=== PATIENT | female | born 1980 | race Caucasian/White ===

== ENCOUNTER → 2018-09-10 16:40 | Outpatient (CLI) | payer BC, SELFPAY ==
--- NOTE | 2018-09-10 16:43 | MM_ITS ---
MM Dig screening mamm BI w/CAD ORDERING PHYSICIAN : Huan August MD PATIENT AGE: 38 years GENDER: Female COMPARISON: January 2014, August 2017. INDICATION: ITS.REASON: screening no hormones no new complaints Family history. Mother with breast cancer in her 50s TECHNIQUE: Standard CC and MLO images were obtained. R2 CAD reviewed. Axillary cc view both breast, IMfview right and left breast. Also included FINDINGS: Stable Mild asymmetry. Mild/moderate density breast tissue upper-outer quadrant of both right and left breast. No new areas of concern. RIGHT BREAST:No significant new findings. LEFT BREAST:No significant change . mildly asymmetric area of at the deep upper outer quadrant left breast. Stable. IMPRESSION: Stable bilateral mammogram. No significant new areas of concern Bilateral one year follow-up BI-RADS Category: 2 Benign Finding(s) RECOMMENDED FOLLOW-UP: 1YR 1 YEAR FOLLOW-UP (A letter has been sent to the patient regarding results of the study.)
== END ==
PROVIDERS: PCP Internal Medicine Adolescent Medicine; Visit Provider Obstetrics & Gynecology
DX: Z80.3 Family history of malignant neoplasm of breast (principal); Z12.31 Encounter for screening mammogram for malignant neoplasm of breast
CPT/HCPCS: 77067

== ENCOUNTER → 2019-01-10 12:11 | Outpatient (CLI) | payer BC, SELFPAY ==
[2019-01-10 14:37] LABS: Alanine Aminotransferase 25 U/L (12-78); Albumin Level 3.5 gm/dL (3.4-5.0); Albumin/Globulin Ratio 0.9 (1.1-1.8); Alkaline Phosphatase 77 U/L (46-116); Anion Gap 14.7 mEq/L (5-15); Aspartate Amino Transferase 9 U/L (15-37); Bilirubin,Total 0.3 mg/dL (0.2-1.0); Blood Urea Nitrogen 9 mg/dL (7-18); Calcium 9.2 mg/dL (8.5-10.1); Carbon Dioxide 27 mmol/L (21.0-32.0); Chloride 103 mmol/L (98-107); Chol/HDL Ratio 4.5 (1-3.5); Cholesterol 187 mg/dL (140-200); Creatinine,Serum 0.79 mg/dL (0.55-1.02); Estimated Glomerular Filt Rate 82 ml/min (>60); GFR (African American) 100 ML/MIN (>60); Globulin 3.7 gm/dl (1.3-3.2); Glucose 93 mg/dL (74-106); HDL Cholesterol 42 mg/dL (29-89); LDL Cholesterol 118 mg/dL (0-130); Potassium 4.7 mmoL/L (3.5-5.1); Sodium 140 mmol/L (136-145); Total Protein,Serum 7.2 gm/dL (6.4-8.2); Triglycerides 136 mg/dL (30-200); VLDL Cholesterol 27 mg/dL (0-40)
== END ==
PROVIDERS: Visit Provider Internal Medicine Adolescent Medicine
DX: Z00.00 Encounter for general adult medical examination without abnormal findings (principal)
CPT/HCPCS: 36415; 80053; 80061

== ENCOUNTER → 2019-09-22 10:55 | Outpatient (CLI) | payer BC, SELFPAY ==
--- NOTE | 2019-09-22 11:10 | MM_ITS ---
PROCEDURE: MM DIG SCREENING MAMM BI W/CAD CLINICAL INDICATION: SCREENING There is a history of breast cancer in patient's mother diagnosed after menopause. COMPARISON: DMDB DIG MAMM-DX SELENE from 02/09/2014 DMSB DIG MAMM-SCREEN SELENE W/CAD from 08/31/2017 [facility] MM Dig screening mamm BI w/CAD from 09/10/2018 TECHNIQUE: Standard CC and MLO images were obtained. R2 CAD reviewed. FINDINGS: Scattered fibroglandular densities are seen in both breasts. There is stable slightly asymmetrical increased fibroglandular elements upper-outer quadrant right breast. There is no new or suspicious lesion in either breast and no suspicious microcalcifications. There are stable small nodes in both axilla. IMPRESSION: Stable exam with no suspicious lesions seen BI-RAD Category: 2 Benign Finding(s) FOLLOW-UP: 1YR 1 Year Follow-up (A letter has been sent to the patient regarding results of the study.) Dictated by: Dr. Don Alvarez MD 09/23/2019 12:[address] Don Alvarez MD in [place] 09/23/2019 12:46
== END ==
PROVIDERS: PCP Internal Medicine Adolescent Medicine; Visit Provider Obstetrics & Gynecology
DX: Z12.31 Encounter for screening mammogram for malignant neoplasm of breast (principal); Z80.3 Family history of malignant neoplasm of breast
CPT/HCPCS: 77067

== ENCOUNTER → 2020-09-23 16:44 | Outpatient (CLI) | payer BC, SELFPAY ==
--- NOTE | 2020-09-23 16:45 | MM_ITS ---
PROCEDURE: MM DIG SCREENING MAMM BI W/CAD Digital Breast Tomosynthesis Included CLINICAL INDICATION: screening xmg There is a history of breast cancer in the patient's mother diagnosed at age 50. The patient currently is on control pills. COMPARISON: MG DMSB DIG MAMM-SCREEN SELENE W/CAD from 08/31/2017 MG [facility] MM Dig screening mamm BI w/CAD from 09/10/2018 MG MM DIG SCREENING MAMM BI W/CAD from 09/22/2019 TECHNIQUE: Standard CC and MLO images and 3D Tomosynthesis was obtained. R2 CAD reviewed. FINDINGS: Mild scattered fibroglandular densities are seen in both breast on a background of primarily fatty breast parenchyma. Slightly asymmetric glandular elements are seen upper outer quadrant right breast which is highlighted by CAD. This has been seen previously but appears slightly more prominent on the current study. In view of the immediate family history of breast cancer recommend the patient return for spot compression views and ultrasound for additional evaluation. IMPRESSION: Fibrofatty parenchyma with possible subtle change in asymmetric glandular elements right breast BI-RAD Category: 0 Need Additional Imaging Evaluation FOLLOW-UP: IMM Immediate Follow-up Recommended (A letter has been sent to the patient regarding results of the study.) Dictated by: Dr. Don Alvarez MD 09/24/2020 12:31 Dr. Don Alvarez MD in [place] 09/24/2020 12:31
== END ==
PROVIDERS: PCP Internal Medicine Adolescent Medicine; Visit Provider Nurse Practitioner Obstetrics & Gynecology
DX: Z12.31 Encounter for screening mammogram for malignant neoplasm of breast (principal)
CPT/HCPCS: 77063; 77067

== ENCOUNTER → 2020-09-28 13:59 | Outpatient (CLI) | payer BC, SELFPAY ==
--- NOTE | 2020-09-28 13:59 | MM_ITS ---
PROCEDURE: MM DIG MAMM DX UNILAT RT CAD Digital Breast Tomosynthesis Included CLINICAL INDICATION: abnormal xmg COMPARISON: MG [facility] MM Dig screening mamm BI w/CAD from 09/10/2018 MG MM DIG SCREENING MAMM BI W/CAD from 09/22/2019 MG MM DIG SCREENING MAMM BI W/CAD from 09/23/2020 US US BREAST RT COMPLETE from 09/28/2020 TECHNIQUE: Standard CC and MLO images and 3D Tomosynthesis was obtained. R2 CAD reviewed. FINDINGS: Compression views somewhat lessen concern of the possible area of asymmetric glandular elements and or architectural distortion. Ultrasound performed same date showed a small somewhat complex cystic structure at this location. However in view of the asymmetry being highlighted by CAD and the patient's strong family history I believe biopsy should be considered. IMPRESSION: Possible change in asymmetric glandular elements right breast in patient with strong family history of breast cancer BI-RAD Category: 4 Suspicious Abnormality - Biopsy Considered FOLLOW-UP: BIO Biopsy Recommended (A letter has been sent to the patient regarding results of the study.) Dictated by: Dr. Don Alvarez MD 09/28/2020 14:49 Dr. Don Alvarez MD in [place] 09/28/2020 14:49
--- NOTE | 2020-09-28 13:59 | US_ITS ---
PROCEDURE: US BREAST RT COMPLETE CLINICAL INDICATION: abnormal xmg COMPARISON: US BB US BREAST-SELENE from 02/09/2014 MG MM DIG MAMM DX UNILAT RT CAD from 09/28/2020 FINDINGS: Shows a hypoechoic cystic lesion 10 o'clock position outer breast corresponding in size and location to the area highlighted by CAD on the mammogram performed the same date. There are internal echoes and there is mild irregularity of the border and increased echogenicity surrounding this cystic lesion. IMPRESSION: Complex cystic lesion with irregular borders surrounded by and area of increased echogenicity corresponding in location to the density highlighted by CAD, and in view of the strong family history I recommend patient have a biopsy likely ultrasound-guided for tissue diagnosis. Dictated by: Dr. Don Alvarez MD 10/05/2020 08:57 Dr. Don Alvarez MD in [place] 10/05/2020 08:57
== END ==
PROVIDERS: PCP Internal Medicine Adolescent Medicine; Visit Provider Nurse Practitioner Obstetrics & Gynecology
DX: R92.8 Other abnormal and inconclusive findings on diagnostic imaging of breast (principal)
CPT/HCPCS: 76641; 77061; 77065; G0279

== ENCOUNTER → 2020-10-14 09:35 | Outpatient (CLI) | payer BC, SELFPAY | PROVIDERS: PCP Internal Medicine Adolescent Medicine; Visit Provider Nurse Practitioner Obstetrics & Gynecology | DX: R92.8 Other abnormal and inconclusive findings on diagnostic imaging of breast (principal); N63.11 Unspecified lump in the right breast, upper outer quadrant | CPT/HCPCS: 19083 ==

== ENCOUNTER → 2021-05-09 13:29 | Outpatient (CLI) | payer BC, SELFPAY ==
--- NOTE | 2021-05-09 13:30 | MM_ITS ---
PROCEDURE: MM DIG MAMM DX UNILAT RT CAD Digital Breast Tomosynthesis Included CLINICAL INDICATION: Dx RT Mamm-6 month f/u COMPARISON: MG DMSB DIG MAMM-SCREEN SELENE W/CAD from 08/31/2017 MG [facility] MM Dig screening mamm BI w/CAD from 09/10/2018 MG MM DIG SCREENING MAMM BI W/CAD from 09/22/2019 MG MM DIG SCREENING MAMM BI W/CAD from 09/23/2020 US US BREAST RT COMPLETE from 09/28/2020 MG MM DIG MAMM DX UNILAT RT CAD from 09/28/2020 US US BREAST RT COMPLETE from 05/09/2021 TECHNIQUE: Standard CC and MLO images and 3D Tomosynthesis was obtained. R2 CAD reviewed. FINDINGS: There are scattered fibroglandular elements which may obscure a lesion on mammography. Previously noted subtle area of architectural distortion upper outer right breast is slightly less conspicuous. No new dominant mass. No suspicious type microcalcifications. Limited right breast ultrasound concentrating on the site of prior biopsy at 10 o'clock shows a minimal residual cystic structure measuring about 4 millimeters. This was previously biopsy-proven to represent a cyst. No other abnormality noted. A few benign-appearing lymph nodes in the right axilla with normal morphology. IMPRESSION: Slight decrease in conspicuity of the area of minimal architectural distortion upper-outer quadrant right breast with minimal residual cystic structure at site of prior biopsy in the right breast at 10 o'clock now measuring about 4 millimeters. These findings are considered probably benign and repeat bilateral digital diagnostic mammograms and limited right breast ultrasound in 6 months are recommended. BI-RAD Category: 3 Probably Benign Finding Short Term Follow-Up FOLLOW-UP: Repeat bilateral digital diagnostic mammograms and limited right breast ultrasound in 6 months. (A letter has been sent to the patient regarding results of the study.) Dictated by: Tavo Jackson 05/09/2021 16:42 Tavo Jackson in [place] 05/09/2021 16:42
== END ==
PROVIDERS: PCP Internal Medicine Adolescent Medicine; Visit Provider Nurse Practitioner Obstetrics & Gynecology
DX: R92.8 Other abnormal and inconclusive findings on diagnostic imaging of breast (principal)
CPT/HCPCS: 76641; 77061; 77065; G0279

== ENCOUNTER → 2021-11-16 11:25 | Outpatient (CLI) | payer BC, SELFPAY ==
[2021-11-16 11:39] LABS: Basophils % 0.5 % (0.1-2.0); Eosinophils # 0.1 K/mm3 (0.0-0.4); Eosinophils % 1.6 % (0.1-12.0); Hematocrit 45.2 % (37.0-47.0); Hemoglobin 15.4 g/dL (12.2-16.2); Lymphocytes # 2.9 K/mm3 (0.7-4.5); Lymphocytes % 44.4 % (10-50); Mean Corpuscular HGB Conc 34.1 g/dL (31.8-35.4); Mean Corpuscular Hemoglobin 31.2 pg (27.0-31.2); Mean Corpuscular Volume 91.5 fl (81-99); Mean Platelet Volume 9.1 fl (7.4-10.4); Monocytes # 0.4 K/mm3 (0.1-1.0); Monocytes % 5.7 % (1.7-9.3); Neutrophils # 3.1 K/mm3 (1.8-7.8); Neutrophils % 47.7 % (37.0-80.0); Platelet Count 324 K/mm3 (142-424); Red Blood Count 4.95 M/mm3 (4.20-5.40); Red Cell Distribution Width 12.9 % (11.5-17.5); White Blood Count 6.6 K/mm3 (4.8-10.8)
--- NOTE | 2021-11-16 13:16 | US_ITS ---
PROCEDURE INFORMATION: Exam: US Right Breast, Complete MG Bilateral Diagnostic Breast Tomosynthesis Exam date and time: 11/16/2021 1:16 PM Age: 41 years old Clinical indication: Short-term radiographic follow-up for questionable distortion in the right lateral breast TECHNIQUE: Imaging protocol: Complete ultrasound of all four quadrants of the Right breast and the retroareolar regions, including ultrasound of the axilla when performed. Bilateral Diagnostic tomosynthesis and 2D mammography including computer-aided detection (CAD) when performed. Unilateral or bilateral exam. COMPARISON: 1. MG MM DIG MAMM DX UNILAT RT CAD 05/09/2021 1:54 PM 2. MG MM DIG MAMM DX UNILAT RT CAD 09/28/2020 2:03 PM FINDINGS: MAMMOGRAPHY: The breast tissue is composed of scattered areas of fibroglandular density. There is no stellate mass, architectural distortion or suspicious microcalcifications in either breast to suggest malignancy. Previously noted area of subtle architectural distortion in the middle third of the right lateral breast is not seen on current examination . No skin thickening or axillary adenopathy. ULTRASOUND: Sonographic images of the right breast including the retroareolar region, all 4 quadrants and the axilla do not demonstrate any solid masses. 0.5 cm cyst in the 10 o'clock axis. No architectural distortion or acoustical shadowing. No skin thickening or axillary adenopathy. IMPRESSION: No mammographic or sonographic evidence of malignancy. Annual bilateral mammographic screening is recommended unless otherwise clinically indicated. ASSESSMENT: BI-RADS Category 2: Benign
[2021-11-16 13:23] LABS: Alanine Aminotransferase 17 U/L (12-78); Albumin Level 4.3 g/dl (3.5-5.0); Albumin/Globulin Ratio 1.3 (1.1-1.8); Alkaline Phosphatase 75 U/L (38-126); Anion Gap 12.3 mEq/L (5-15); Aspartate Amino Transferase 22 U/L (14-36); Bilirubin,Total 0.5 mg/dl (0.2-1.3); Blood Urea Nitrogen 11 mg/dl (7-17); Calcium 10.1 mg/dl (8.4-10.2); Carbon Dioxide 28 mmol/L (22.0-30.0); Chloride 100 mmol/L (98-107); Estimated Glomerular Filt Rate 93 ml/min (>60); GFR (African American) 113 ML/MIN (>60); Globulin 3.2 g/dL (1.3-3.2); Glucose 85 mg/dl (74-100); Magnesium 1.7 mg/dl (1.6-2.3); Potassium 4.3 mmoL/L (3.5-5.1); Sodium 136 mmol/L (136-145); Total Protein,Serum 7.5 g/dl (6.3-8.2)
[2021-11-16 13:57] LABS: Free T4 (Free Thyroxine) 0.81 ng/dl (0.78-2.19)
[2021-11-16 14:11] LABS: Thyroid Stimulating Hormone 3.54 uIU/mL (0.465-4.68)
[2021-11-16 14:30] LABS: Vitamin B12 238 pg/mL (239-931)
== END ==
LOC: RAD 11:26
PROVIDERS: Nurse Practitioner Family; PCP Internal Medicine Adolescent Medicine; Visit Provider Nurse Practitioner Obstetrics & Gynecology
DX: R92.8 Other abnormal and inconclusive findings on diagnostic imaging of breast (principal); R00.2 Palpitations; R53.81 Other malaise
CPT/HCPCS: 36415; 76641; 77062; 77066; 80053; 82607; 83735; 84439; 84443; 85025; 93225; 93226; G0279

== ENCOUNTER → 2021-11-24 15:40 | Outpatient (CLI) | payer BC, SELFPAY | PROVIDERS: PCP Internal Medicine Adolescent Medicine; Visit Provider Nurse Practitioner Family | DX: Z20.822 Contact with and (suspected) exposure to COVID-19 (principal); R05.9 Cough, unspecified | CPT/HCPCS: 87275; 87276; C9803; U0003; U0005 ==

== ENCOUNTER 2022-11-03 06:52 | Emergency (ER) | payer BC, SELFPAY ==
[2022-11-03] VITALS (9 sets, daily range): BP systolic 125–170; BP diastolic 73–104; PULSE 68–87; RESP 17–18; TEMP 36.6–36.7; O2SAT 98–100; BMI 31.8
--- NOTE | 2022-11-03 07:01 | CT_ITS ---
PROCEDURE INFORMATION: Exam: CTA Neck With Contrast Exam date and time: 11/03/2022 7:22 AM Age: 42 years old Clinical indication: Stroke-like symptoms; Left upper extremity numbness/paresthesia; Additional info: CVA rule out. Lue weakness and facial numbness TECHNIQUE: Imaging protocol: Computed tomographic angiography of the neck with contrast. 3D rendering (Not supervised by radiologist): MIP and/or 3D reconstructed images were created by the technologist. Radiation optimization: All CT scans at this facility use at least one of these dose optimization techniques: automated exposure control; mA and/or kV adjustment per patient size (includes targeted exams where dose is matched to clinical indication); or iterative reconstruction. Contrast material: ISOVUE; Contrast volume: 100 ml; Contrast route: INTRAVENOUS (IV); COMPARISON: CT HEAD/BRAIN WO CON 11/03/2022 7:13 AM FINDINGS: Right common carotid artery: No stenosis. No dissection or occlusion. Right internal carotid artery: No stenosis of the extracranial segment. No dissection or occlusion. Right external carotid artery: No occlusion or stenosis of the origin. Left common carotid artery: No stenosis. No dissection or occlusion. Left internal carotid artery: No stenosis of the extracranial segment. No dissection or occlusion. Left external carotid artery: No occlusion or stenosis of the origin. Right vertebral artery: No stenosis. No dissection or occlusion. Left vertebral artery: No stenosis. No dissection or occlusion. 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 Soft tissues: Normal. No significant soft tissue swelling. Bones/joints: No acute fracture. IMPRESSION: No significant cervical arterial stenosis. REFERENCES: NASCET CRITERIA. The degree of stenosis in the cervical segment of the internal carotid artery is based on NASCET criteria. Normal is no stenosis. Mild is less than 50% stenosis. Moderate is 50-69% stenosis. Severe is 70% to 99% stenosis. Total occlusion is no detectable patent lumen.
--- NOTE | 2022-11-03 07:01 | CT_ITS ---
PROCEDURE INFORMATION: Exam: CTA Head With Contrast, Arteriography Exam date and time: 11/03/2022 7:22 AM Age: 42 years old Clinical indication: Stroke-like symptoms; Left upper extremity numbness/paresthesia; Additional info: CVA rule out. Lue weakness and facial numbness TECHNIQUE: Imaging protocol: Computed tomographic angiography of the head with contrast. Exam focused on the arteries. 3D rendering (Not supervised by radiologist): MIP and/or 3D reconstructed images were created by the technologist. Radiation optimization: All CT scans at this facility use at least one of these dose optimization techniques: automated exposure control; mA and/or kV adjustment per patient size (includes targeted exams where dose is matched to clinical indication); or iterative reconstruction. Contrast material: ISOVUE; Contrast volume: 100 ml; Contrast route: INTRAVENOUS (IV); COMPARISON: CT HEAD/BRAIN WO CON 11/03/2022 7:13 AM FINDINGS: ANTERIOR CIRCULATION: Right internal carotid artery: Intracranial segment is patent with no significant stenosis. No aneurysm. Right middle cerebral artery: No occlusion or significant stenosis. No aneurysm. Right anterior cerebral artery: No occlusion or significant stenosis. No aneurysm. Left internal carotid artery: Intracranial segment is patent with no significant stenosis. No aneurysm. Left middle cerebral artery: No occlusion or significant stenosis. No aneurysm. Left anterior cerebral artery: No occlusion or significant stenosis. No aneurysm. POSTERIOR CIRCULATION: Right vertebral artery: No occlusion or significant stenosis. No aneurysm. Left vertebral artery: No occlusion or significant stenosis. No aneurysm. Basilar artery: No occlusion or significant stenosis. No aneurysm. Right posterior cerebral artery: No occlusion or significant stenosis. No aneurysm. Left posterior cerebral artery: No occlusion or significant stenosis. No aneurysm. 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 Brain: No definite mass, mass effect, or midline shift. There is a tiny lipoma of the quadrigeminal plate cistern. Cerebral ventricles: No ventriculomegaly. Bones/joints: Unremarkable. No acute fracture. Soft tissues: Unremarkable. IMPRESSION: No large vessel stenosis or occlusion.
--- NOTE | 2022-11-03 07:02 | PC.NURSE ---
radiology notified of stroke alert
--- NOTE | 2022-11-03 07:02 | CT_ITS ---
PROCEDURE INFORMATION: Exam: CT Head Without Contrast Exam date and time: 11/03/2022 7:13 AM Age: 42 years old Clinical indication: Stroke-like symptoms; Left upper extremity numbness/paresthesia; Additional info: Lue numbness and facial numbness TECHNIQUE: Imaging protocol: Computed tomography of the head without contrast. Radiation optimization: All CT scans at this facility use at least one of these dose optimization techniques: automated exposure control; mA and/or kV adjustment per patient size (includes targeted exams where dose is matched to clinical indication); or iterative reconstruction. Other technique: STROKE PROTOCOL was implemented. COMPARISON: No relevant prior studies available. FINDINGS: Brain: Normal. No hemorrhage. Unremarkable white matter. No mass effect. Cerebral ventricles: No ventriculomegaly. Paranasal sinuses: Visualized sinuses are unremarkable. No fluid levels. Mastoid air cells: Visualized mastoid air cells are well aerated. Bones/joints: Unremarkable. No acute fracture. Soft tissues: Unremarkable. IMPRESSION: No acute intracranial abnormality. ASSESSMENT: ASPECTS ([place] Stroke Program Early CT Score) is 10.
--- NOTE | 2022-11-03 07:03 | PC.NURSE ---
dr. lu at bedside for evaluation
[2022-11-03 07:04] LABS: Microscopic, Urine URINE MICROSCOPIC (MICROSCOPIC)
[2022-11-03 07:05] LABS: Appearance,Urine CLEAR (Clear); Bilirubin,Urine Negative (Negative); Blood, Urine 1+ (Negative); Color,Urine YELLOW (Yellow); Glucose,Urine (UA) Negative (Negative); Ketones,Urine Negative (Negative); Leukocyte Esterase,Urine Negative (Negative); Nitrate,Urine Negative (Negative); Protein,Urine Negative (Negative); Urobilinogen,Urine 0.2 EU/dl (0.2)
--- NOTE | 2022-11-03 07:05 | PC.NURSE ---
[facility]
[2022-11-03 07:06] LABS: Urine Pregnancy, HCG Qual. Negative (Negative)
--- NOTE | 2022-11-03 07:09 | PC.NURSE ---
PT TO CT
[2022-11-03 07:19] LABS: Bacteria,Urine Trace /lpf; RBC,Urine Occasional #/hpf (0-3); Squamous Epithelial Cell,Urine Occasional #/hpf (0-5)
--- NOTE | 2022-11-03 07:32 | PC.NURSE ---
[id number]
--- NOTE | 2022-11-03 07:32 | HMH.EDGENADL ---
Discharge Plan Disposition Patient Disposition: Home, Self-Care Condition: Good Chief Complaint: Neuro Symptoms/Deficit Prescriptions Prescriptions: No Action aspirin 81 mg tablet,delayed release (DR/EC) 81 mg PO DAILY propranolol 20 mg tablet 20 mg PO BID cetirizine 10 mg tablet 10 mg PO Label Comments: TAKE ONE TABLET BY MOUTH ONCE DAILY NEEDED Probiotic 3 billion cell capsule 3,000 mmu cells PO DAILY Rx Instructions: administer with a meal sertraline 25 mg tablet 25 mg PO DAILY Ajovy Autoinjector 225 mg/1.5 mL auto-injector 225 mg SQ norgestimate-ethinyl estradiol [Ortho Tri-Cyclen (28)] 0.18/0.215/0.25 mg-35 mcg (28) tablet 1 tab PO DAILY Qty: 84 4RF methylprednisolone [Medrol (Minh)] 4 mg tablets,dose pack 4 mg PO .COMPLEX Qty: 21 0RF Rx Instructions: 4 mg orally; take according to package directions for dose pack. Referrals Follow up/Referrals: Roberto Reynaga MD [Primary Care Provider] - See instructions Activity Restrictions/Add. Instructions Additional Instructions/Restrictions: At this time was felt you are safe to be discharged from the emergency department. If new or worsening symptoms please do not hesitate to return for continued evaluation. Please follow-up with your family doctor for continued management. Clinical Impressions Clinical Impression: Migraine Discharge ED Provider: Harish Hickey General Adult HPI <Arsalan Munguia MD - Last Filed: 11/03/22 08:32> General Chief complaint: Neuro Symptoms/Deficit Stated complaint: Left arm and face numbness Time Seen by Provider: 11/03/22 07:00 Mode of Arrival: Ambulatory Limitations: No Limitations Description of Symptoms (Recalled from ER Triage Doc. by RN): PT REPORTS THIS AM WHILE WASHING HER HAIR HER LEFT ARM WENT LIMP AND THE LEFT SIDE OF HER FACE WAS NUMB FOR ABOUT 5-10 SECONDS, RESOLVED AT PRESENT. CAN USE LEFT ARM/HAND BUT REPORTS DECREASED SENSATION. NO OTHER DEFICITS. REPORTS DIZZINESS 2 DAYS AGO. History of Present Illness HPI narrative: This is a 42-year-old female with history of hemiplegic migraines, left-sided ulnar nerve surgery presenting with left upper extremity weakness, numbness, left facial numbness. Patient states that approximately 90 minutes prior to arrival she was in the shower when she had left facial numbness, left upper extremity numbness and weakness. She came to the ED for further evaluation. Patient denies headache, migraine, vision changes, facial pain, facial swelling, left lower extremity deficits, dizziness, lightheadedness, chest pain, shortness of breath, nausea, vomiting, diaphoresis. She states that she has had hemiplegia from migraine-like symptoms in the past in the absence of migraine and aura, however this is very uncommon. No head trauma, or any other concerning history. Patient is on oral contraceptive Related Data Home Medications Medication Instructions Recorded Confirmed propranolol 20 mg tablet 20 mg PO BID 08/06/18 10/25/22 aspirin 81 mg tablet,delayed 81 mg PO DAILY 08/07/19 10/25/22 release cetirizine 10 mg tablet 10 mg PO 08/17/21 10/25/22 lactobacillus combination no.4 3 3,000 mmu cells PO DAILY 08/17/21 10/25/22 billion cell capsule (Probiotic) fremanezumab-vfrm 225 mg/1.5 mL 225 mg SQ 09/04/22 10/25/22 subcutaneous auto-injector (Ajovy) sertraline 25 mg tablet 25 mg PO DAILY 09/04/22 10/25/22 Previous Rx's Medication Instructions Recorded norgestimate-ethinyl estradiol 1 tab PO DAILY #84 tabs 09/04/22 0.18 mg/0.215mg/0.25mg-35 mcg(28)tablet (Ortho Tri-Cyclen (28)) methylprednisolone 4 mg tablets in 4 mg PO .COMPLEX pain and 10/04/22 a dose pack (Medrol (Minh)) inflammation #21 tabs Allergies Allergy/AdvReac Type Severity Reaction Status Date / Time Sulfa (Sulfonamide Allergy Mild Rash Verified 10/25/22 13:54 Antibiotics) topiramate [From Topamax] Allergy Mild Verified 10/25/22 13:5
[2022-11-03 07:34] LABS: POC Glucose,Bedside 109 (70-110)
--- NOTE | 2022-11-03 07:38 | ECG_ITS ---
APPROVED REPORT Exam: Resting ECG HR:76 bpm ECG Measurements Heart Rate 76 AXES MO 153 P 11 QRSd 89 QRS -13 QT 384 T 31 QTc 414 Conclusion SINUS RHYTHM NORMAL ECG UNCONFIRMED REPORT Electronically signed by : Roberto Reynaga MD 11/03/2022 09:22:51
--- NOTE | 2022-11-03 07:38 | PC.NURSE ---
0703 [facility] SCORE PER DR. SAEED
--- NOTE | 2022-11-03 07:55 | PC.NURSE ---
Dr. Munguia speaking with CHRISTINE at this time
--- NOTE | 2022-11-03 08:10 | PC.NURSE ---
Contacting [facility] for consult
--- NOTE | 2022-11-03 08:15 | PC.NURSE ---
Dr. Munguia speaking with [facility] team at this time
[2022-11-03 08:18] LABS: Basophils # 0.1 K/mm3 (0-0.2); Basophils % 0.8 % (0.1-2.0); Eosinophils # 0.2 K/mm3 (0.0-0.4); Eosinophils % 2.4 % (0.1-12.0); Hematocrit 47.8 % (37.0-47.0); Hemoglobin 15.6 g/dL (12.2-16.2); Lymphocytes # 3.2 K/mm3 (0.7-4.5); Lymphocytes % 48.1 % (10-50); Mean Corpuscular HGB Conc 32.7 g/dL (31.8-35.4); Mean Corpuscular Hemoglobin 30.7 pg (27.0-31.2); Mean Corpuscular Volume 93.8 fl (81-99); Mean Platelet Volume 9.7 fl (7.4-10.4); Monocytes # 0.5 K/mm3 (0.1-1.0); Neutrophils # 2.8 K/mm3 (1.8-7.8); Neutrophils % 41.7 % (37.0-80.0); Platelet Count 442 K/mm3 (142-424); Red Blood Count 5.09 M/mm3 (4.20-5.40); Red Cell Distribution Width 13.8 % (11.5-17.5); White Blood Count 6.6 K/mm3 (4.8-10.8)
[2022-11-03 08:23] LABS: Chloride 104 mmol/L (98-107); Sodium 139 mmol/L (136-145)
[2022-11-03 08:24] LABS: Potassium 3.9 mmoL/L (3.5-5.1)
[2022-11-03 08:26] LABS: Blood Urea Nitrogen 12 mg/dl (7-17); Creatinine Clearance Estimated 138 mL/min (50-200); Estimated Glomerular Filt Rate 93 ml/min (>60); GFR (African American) 112 ML/MIN (>60)
--- NOTE | 2022-11-03 08:26 | PC.NURSE ---
DR. SAEED AT BEDSIDE TO DISCUSS POC WITH PT
[2022-11-03 08:27] LABS: Anion Gap 12.9 mEq/L (5-15); Calcium 9.5 mg/dl (8.4-10.2); Carbon Dioxide 26 mmol/L (22.0-30.0); Glucose 83 mg/dl (74-100)
--- NOTE | 2022-11-03 08:30 | PC.NURSE ---
pt ambulatory to restroom without complications
[2022-11-03 08:42] LABS: Troponin I < 0.01 ng/ml (0.00-0.034)
--- NOTE | 2022-11-03 09:30 | PC.NURSE ---
ER at for update on POC with patient
--- NOTE | 2022-11-03 09:31 | PC.NURSE ---
DR. BRYANT AT BEDSIDE TO REEVALUATE PT AND DISCUSS POC
== END 2022-11-03 10:00 | disposition home or self-care (01) ==
PROVIDERS: Emergency Medicine; Emergency Provider Emergency Medicine; PCP Internal Medicine Adolescent Medicine
DX: G43.909 Migraine, unspecified, not intractable, without status migrainosus (principal); R29.818 Other symptoms and signs involving the nervous system; Z79.82 Long term (current) use of aspirin; Z79.899 Other long term (current) drug therapy; Z88.2 Allergy status to sulfonamides; Z88.8 Allergy status to other drugs, medicaments and biological substances
CPT/HCPCS: 70450; 70496; 70498; 80048; 81001; 81025; 82962; 84484; 85025; 93005; 96365; 96375; 99285; Q9967

== ENCOUNTER → 2022-12-04 16:29 | Outpatient (CLI) | payer BC, SELFPAY ==
--- NOTE | 2022-12-04 16:34 | MM_ITS ---
PROCEDURE INFORMATION: Exam: MG Bilateral Screening 3D Mammography Exam date and time: 12/04/2022 4:46 PM Age: 42 years old Clinical indication: Screening examination TECHNIQUE: Imaging protocol: Bilateral Screening tomosynthesis and 2D mammography including computer-aided detection (CAD) when performed. COMPARISON: 1. MG MM DIG MAMM BI DX W/CAD 11/16/2021 1:27 PM 2. MG MM DIG MAMM DX UNILAT RT CAD 05/09/2021 1:54 PM FINDINGS: MAMMOGRAPHY: Breast composition: There are scattered areas of fibroglandular density. Mass: None. Architectural distortion: None. Calcifications: No suspicious calcifications. Asymmetric density: None. Skin thickening: None. Axillary adenopathy: None. IMPRESSION: No mammographic evidence of malignancy. Annual screening is recommended unless otherwise clinically indicated. ASSESSMENT: BI-RADS Category 1: Negative
[2022-12-04 19:04] LABS: Folate 8.23 ng/mL; Vitamin B12 336 pg/mL (239-931)
[2022-12-06 23:51] LABS: Antinuclear Antibodies (ANA) NEGATIVE
== END ==
PROVIDERS: PCP Nurse Practitioner Family; Visit Provider Nurse Practitioner Family
DX: Z12.31 Encounter for screening mammogram for malignant neoplasm of breast (principal); E53.8 Deficiency of other specified B group vitamins; G89.29 Other chronic pain; R51.9 Headache, unspecified
CPT/HCPCS: 36415; 77063; 77067; 82607; 82746; 84443; 86038

== ENCOUNTER → 2022-12-11 13:35 | Outpatient (CLI) | payer BC, SELFPAY ==
--- NOTE | 2022-12-11 13:53 | MR_ITS ---
FINAL REPORT TECHNIQUE: Multiplanar and multisequence imaging of the brain was obtained without contrast. CLINICAL HISTORY: Daily headaches despite of medication, CVA-like. complex migraines for years. dizziness and blurred vision. FINDINGS: The gyri and sulci are within normal limits for age. There is no mass effect or midline shift. The ventricles are symmetric in size and configuration without hydrocephalus. The cerebellum and brainstem have a normal appearance. There is a focus of restricted diffusion in the left posterior temporal lobe with decreased signal intensity on ADC map imaging concerning for small focus of acute ischemia. Signal intensity in the proximal cord is normal. Soft tissues are without acute abnormality. IMPRESSION: Single focus of restricted diffusion in the posterior left temporal lobe concerning for small, acute infarct. Reviewed, Interpreted and Dictated by Ines Nevarez MD Transcribed by Thais Rivera Authenticated and [facility]
[2022-12-13 14:17] LABS: Antiparietal Cell Antibody 1.5 Units (0.0-20.0)
[2022-12-14 17:05] LABS: Intrinsic Factor Abs, Serum 0.9 AU/mL (0.0-1.1)
[2022-12-15 02:37] LABS: Methylmalonic Acid 150 nmol/L (0-378)
== END ==
PROVIDERS: PCP Nurse Practitioner Family; Visit Provider Nurse Practitioner Family
DX: R51.9 Headache, unspecified (principal); R29.90 Unspecified symptoms and signs involving the nervous system; E53.8 Deficiency of other specified B group vitamins
CPT/HCPCS: 36415; 70551; 82131; 83090; 83516; 86340

== ENCOUNTER → 2022-12-13 09:31 | Outpatient (CLI) | payer BC, SELFPAY ==
--- NOTE | 2022-12-13 09:48 | ECG_ITS ---
APPROVED REPORT Exam: Resting ECG HR:81 bpm ECG Measurements Heart Rate 81 AXES MA 134 P -8 QRSd 88 QRS 16 QT 367 T 30 QTc 405 Conclusion SINUS RHYTHM NORMAL ECG UNCONFIRMED REPORT Electronically signed by : Roberto Reynaga MD 12/14/2022 19:15:01
[2022-12-13 10:46] LABS: Cholesterol 218 mg/dl (140-200); Triglycerides 331 mg/dl (30-150); VLDL Cholesterol 66 mg/dL (0-40)
[2022-12-13 10:47] LABS: Chol/HDL Ratio 5.9 (1-3.5); HDL Cholesterol 37 mg/dl (40-60)
[2022-12-13 10:57] LABS: Direct LDL Cholesterol 123.21 mg/dL (100-129)
== END ==
LOC: LAB 09:32 → RT 09:36
PROVIDERS: PCP Nurse Practitioner Family; Visit Provider Nurse Practitioner Family
DX: R90.89 Other abnormal findings on diagnostic imaging of central nervous system (principal); R29.90 Unspecified symptoms and signs involving the nervous system; I63.9 Cerebral infarction, unspecified; G43.409 Hemiplegic migraine, not intractable, without status migrainosus; G47.9 Sleep disorder, unspecified
CPT/HCPCS: 36415; 80061; 93005; 93270

== ENCOUNTER → 2022-12-21 14:17 | Outpatient (CLI) | payer BC, SELFPAY ==
--- NOTE | 2022-12-21 14:20 | CA_ITS ---
APPROVED REPORT EXAM: Comprehensive 2D, Doppler, and color-flow Echocardiogram Medical Case Manager: Ramandeep Grant CRT Ht: 5 ft 4 in Wt: 185lbs BSA: 1.89 BP: 130/70 mmHg Indications: CVA/TIA, Migraines Echo Enhancing Agent Indication: Rule out Shunt Agent(s) / Amount(s) Used: Agitated Saline 5 cc Comments: B/S appears positive 2D Dimensions Aortic Root 1.96 cm LA Volume 26.30 mL LA Volume Index 13.90 mL/m2 (M/F) 16-34 M-Mode Dimensions RVDd 2.10 cm (0.9-2.6) LA Diam 3.18 cm (1.9-4.0) LVDd 4.66 cm (3.5-5.7) Ao Diam 3.42 cm (2.0-3.7) LVDs 3.08 cm (3.5-5.7) IVSd 1.25 cm (0.6-1.1) PWd 0.61 cm (0.6-1.1) EF (Teich) 62.80% FS 33.90% EDV (Teich) 100.30 mL TAPSE 1.83 (<1.7) ESV (Teich) 37.30 mL LV Diastology E Decel Time 190.00 (160-240 msec) E/A Ratio 0.74 MED E' 6.50 (< 7 cm/sec) MED A' 10.50 cm/s E'/MED E' Ratio 10.95 (>14) LAT E' 11.50 (<10 cm/sec) LAT A' 11.00 cm/s E/LAT E' Ratio 6.19 (>14) Aortic Valve LVOT Max 94.00 (70-110 cm/s) LVOT VTI 17.91 cm AoV Peak Reinaldo. 147.00 (50-130 cm/s) AO Peak GR. 8.60 mmHg AO Mean GR. 4.30 (<5 mmHg) AO VTI 27.46 (18-25 cm) Mitral Valve MV A Velocity 96.00 (40-130 cm/s) E/A Ratio 0.74 MV Decel. Time 190.00 (160-240 ms) Pulmonary Valve PV Peak Velocity 139.00 (50-150 cm/s) Tricuspid Valve TR P. Velocity 227.00 cm/s RAP Estimate 10.00 mmHg RVSP 30.70 mmHg Left Ventricle Left atrium is normal size, left ventricle is normal size, estimated ejection fraction 55% with no regional wall motion abnormality, Doppler evidence of impaired LV relaxation. Right Ventricle Right atrium and right ventricle are normal size and contractility. Atria Intra-atrial septum is intact, agitated saline contrast to identify [id number] shunt, likely secondary to patent foramen ovale. Aortic Valve Aortic valve is grossly normal there is no aortic stenosis aortic insufficiency. Mitral Valve Mitral valve is grossly normal, there is trace mitral regurgitation. Tricuspid Valve Tricuspid grossly normal, there is trace tricuspid regurgitation, tricuspid regurgitation jet velocity is inadequate for calculation of the right ventricular systolic pressure. Pulmonic Valve Pulmonic valve is poorly visualized. Great Vessels Aortic root is normal size. Inferior vena cava is poorly visualized. Pericardium No significant pericardial effusion noted. Conclusion 1. Normal left ventricular size preserved left ventricular systolic function, estimated ejection fraction 55% with no regional wall motion abnormality, Doppler evidence of impaired LV relaxation seen. 2. Trace mitral and tricuspid regurgitation. 3. Agitated saline contrast study identifies intracardiac shunt likely patent foramen ovale. 4. No significant pericardial effusion. 5. Inferior vena cava is poorly visualized. Electronically signed by : Chase Huber MD 12/22/2022 15:39:11
--- NOTE | 2022-12-21 14:20 | CA_ITS ---
FINAL REPORT TECHNIQUE: Color Doppler, duplex Doppler and skinner scale sonography of the bilateral neck arterial vasculature was performed. Velocities were measured in the carotid arteries. Stenosis evaluation based on the validated velocity criteria. CLINICAL HISTORY: questionable CVA, POSITIVE ASD FINDINGS: The peak systolic velocity of the right common carotid artery is 138 cm/s. The peak systolic velocity of the right internal carotid artery is 99 cm/s and end diastolic velocity 29 cm/s. The ICA/CCA ratio is 0.7. A mild amount of plaque is present. The right external carotid artery is patent. The right vertebral artery is patent with antegrade flow. The peak systolic velocity of the left common carotid artery is 105 cm/s. The peak systolic velocity of the left internal carotid artery is 107 cm/s and end diastolic velocity 50 cm/s. The ICA/CCA ratio is 1.0. A mild amount of plaque is present. The left external carotid artery is patent.The left vertebral artery is patent with antegrade flow. IMPRESSION: Less than 50% bilateral carotid stenosis. Bilateral patent vertebral arteries with antegrade flow. If indicated, CTA or MRA could further evaluate. Reviewed, Interpreted and Dictated by Vitor Underwood MD Transcribed by Eufemia Lugo Authenticated and [facility]
== END ==
LOC: RT 14:20
PROVIDERS: PCP Nurse Practitioner Family; Visit Provider Nurse Practitioner Family
DX: I63.9 Cerebral infarction, unspecified (principal); G43.409 Hemiplegic migraine, not intractable, without status migrainosus; R29.90 Unspecified symptoms and signs involving the nervous system; G47.9 Sleep disorder, unspecified; R90.89 Other abnormal findings on diagnostic imaging of central nervous system
CPT/HCPCS: 93306; 93880

== ENCOUNTER → 2022-12-27 10:48 | Outpatient (CLI) | payer BC, SELFPAY ==
--- NOTE | 2022-12-27 10:49 | CA_ITS ---
FINAL REPORT CLINICAL HISTORY: Cryptogenic stroke, PFO, patient on aspirin and Plavix COMPARISON: None FINDINGS: Color Doppler, duplex Doppler and compression sonography of the bilateral lower extremities was performed. There is no evidence of deep venous thrombosis from the level of the groin to the calf. The deep veins are patent and compressible. IMPRESSION: No evidence of deep venous thrombosis bilateral lower extremities. Reviewed, Interpreted and Dictated by Mason Anderson III, MD Transcribed by Shani Okeefe Authenticated and [facility]
--- NOTE | 2022-12-27 11:19 | CT_ITS ---
FINAL REPORT CLINICAL HISTORY: cryptogenic stroke FINDINGS: Thin section axial CT images of the chest were obtained with contrast. 3D reformatted images were also obtained. This study was performed with techniques to keep radiation doses as low as reasonably achievable (ALARA). Individualized dose reduction techniques using automated exposure control or adjustment of mA and/or kV according to the patient''s size were employed. There is no evidence of pulmonary embolism. There is no evidence of thoracic aortic aneurysm or dissection. 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 There is no evidence of mediastinal or hilar mass or adenopathy. There is no evidence of pulmonary mass or nodule. No localized inflammatory process is seen within the lungs. Limited images of the upper abdomen are unremarkable. IMPRESSION: No evidence of pulmonary embolism. No mass or localized inflammatory process. Reviewed, Interpreted and Dictated by Mason Anderson III, MD Transcribed by Sepideh Colón Authenticated and [facility]
== END ==
PROVIDERS: PCP Internal Medicine Adolescent Medicine; Visit Provider Nurse Practitioner
DX: I63.9 Cerebral infarction, unspecified (principal); Q21.12 Patent foramen ovale
CPT/HCPCS: 71275; 93970; Q9967

== ENCOUNTER → 2023-01-03 07:29 | Outpatient (CLI) | payer BC, SELFPAY ==
--- NOTE | 2023-01-03 07:29 | MR_ITS ---
FINAL REPORT CLINICAL HISTORY: abnormal brain mri, 2-week follow-up 17ml prohance injected COMPARISON: 12/11/2022 FINDINGS: Multiplanar MR imaging of the brain was performed without and with contrast. There is no evidence of intracranial hemorrhage or mass. No abnormal extra-axial fluid collection is seen. The ventricular size is within normal limits. There is no evidence of shift of the midline structures. The posterior fossa and brainstem have an unremarkable appearance. The previous identified focus of abnormal restricted diffusion in the left posterior temporal lobe is no longer seen consistent with resolved focus of acute ischemia. No abnormal contrast enhancement is seen. Normal major vessel vascular flow voids are noted. IMPRESSION: Findings consistent with resolved acute ischemia. Reviewed, Interpreted and Dictated by Jesus Elkins MD Transcribed by Sepideh Colón Authenticated and [facility]
== END ==
PROVIDERS: PCP Internal Medicine Adolescent Medicine; Visit Provider Nurse Practitioner Family
DX: G43.409 Hemiplegic migraine, not intractable, without status migrainosus (principal); I63.9 Cerebral infarction, unspecified; R29.90 Unspecified symptoms and signs involving the nervous system; R90.89 Other abnormal findings on diagnostic imaging of central nervous system
CPT/HCPCS: 70553; A9576

== ENCOUNTER → 2023-01-16 13:11 | Outpatient (CLI) | payer BC, SELFPAY ==
--- NOTE | 2023-01-16 13:11 | US_ITS ---
FINAL REPORT CLINICAL HISTORY: history of thyroid nodules FINDINGS: THYROID ULTRASOUND Sonographic images of the thyroid was obtained. The right lobe of the thyroid measures 4.9 x 2.0 x 1.4 cm. The left lobe of the thyroid measures 4.6 x 1.8 x 1.5 cm. The isthmus measures 4 mm. The thyroid is enlarged with heterogeneous echotexture. There is increased vascularity which is worrisome for thyroiditis. There is a 10 x 10 x 3 mm hypoechoic right isthmus nodule, TI-RADS 4. IMPRESSION: Enlarged and heterogeneous thyroid with increased vascularity, worrisome for thyroiditis. TI-RADS 4 nodule in the right isthmus. Recommend follow-up ultrasound in 6-12 months. Reviewed, Interpreted and Dictated by Mason Anderson III, MD Transcribed by Eufemia Lugo Authenticated and . [facility]
== END ==
PROVIDERS: PCP Internal Medicine Adolescent Medicine; Visit Provider Nurse Practitioner
DX: Z86.39 Personal history of other endocrine, nutritional and metabolic disease (principal)
CPT/HCPCS: 76536

== ENCOUNTER → 2023-01-20 09:17 | Outpatient (CLI) | payer BC, SELFPAY ==
[2023-01-20 10:34] LABS: Free Thyroxine Index 2.4 ug/dL (5.93-13.13); T4 (Thyroxine) 7.7 ug/dl (5.53-11.0); Triiodothryronine (T3) Uptake 31 % (23.5-40.5)
[2023-01-20 10:47] LABS: Thyroid Stimulating Hormone 1.49 uIU/mL (0.465-4.68)
[2023-01-21 09:10] LABS: Thyroid Peroxidase Antibodies 549 IU/mL (0-34)
[2023-01-22 15:46] LABS: Thyroglobulin Level 8.2 IU/mL (0.0-0.9)
[2023-01-23 15:10] LABS: Thyroid Stimulating Immunoglob 0.12 IU/L (0.00-0.55)
== END ==
PROVIDERS: PCP Internal Medicine Adolescent Medicine; Visit Provider Nurse Practitioner Family
DX: E04.1 Nontoxic single thyroid nodule (principal); E06.9 Thyroiditis, unspecified
CPT/HCPCS: 36415; 84436; 84443; 84445; 84479; 86376; 86800

== ENCOUNTER → 2023-02-13 14:13 | Outpatient (CLI) | payer BC, SELFPAY ==
--- NOTE | 2023-02-13 14:15 | CA_ITS ---
FINAL REPORT CLINICAL HISTORY: recent 02/09/23 PFO closure, swelling accessed through Right CFV FINDINGS: DUPLEX SCAN LOWER EXT ARTERY UNI Limited sonographic images were obtained of the right inguinal region. No aneurysm or fistula is identified. The right common femoral artery and right common femoral vein are patent. IMPRESSION: No evidence of aneurysm or fistula. Reviewed, Interpreted and Dictated by Jesus Elkins MD Transcribed by Arturo Singh Authenticated and . [facility]
[2023-02-13 15:15] LABS: Basophils # 0.1 K/mm3 (0-0.2); Basophils % 0.6 % (0.1-2.0); Eosinophils # 0.2 K/mm3 (0.0-0.4); Eosinophils % 1.9 % (0.1-12.0); Hematocrit 44.3 % (37.0-47.0); Hemoglobin 14.9 g/dL (12.2-16.2); Lymphocytes # 3.4 K/mm3 (0.7-4.5); Lymphocytes % 31.9 % (10-50); Mean Corpuscular HGB Conc 33.5 g/dL (31.8-35.4); Mean Corpuscular Hemoglobin 30.2 pg (27.0-31.2); Mean Corpuscular Volume 90.1 fl (81-99); Monocytes # 0.6 K/mm3 (0.1-1.0); Monocytes % 5.4 % (1.7-9.3); Neutrophils # 6.4 K/mm3 (1.8-7.8); Neutrophils % 60.2 % (37.0-80.0); Platelet Count 373 K/mm3 (142-424); Red Blood Count 4.92 M/mm3 (4.20-5.40); Red Cell Distribution Width 13.1 % (11.5-17.5); White Blood Count 10.6 K/mm3 (4.8-10.8)
[2023-02-13 15:46] LABS: Alanine Aminotransferase 94 U/L (12-78); Albumin Level 4.2 g/dl (3.5-5.0); Alkaline Phosphatase 102 U/L (38-126); Anion Gap 10.4 mEq/L (5-15); Aspartate Amino Transferase 73 U/L (14-36); Bilirubin,Direct 0.2 mg/dl (0.0-0.4); Bilirubin,Indirect 0.2 mg/dL (0.0-0.9); Bilirubin,Total 0.4 mg/dl (0.2-1.3); Bilirubin,Unconjugated 0.2 mg/dL (0.0-1.1); Blood Urea Nitrogen 14 mg/dl (7-17); Calcium 9.5 mg/dl (8.4-10.2); Carbon Dioxide 30 mmol/L (22.0-30.0); Chloride 102 mmol/L (98-107); Estimated Glomerular Filt Rate 93 ml/min (>60); GFR (African American) 112 ML/MIN (>60); Glucose 93 mg/dl (74-100); Potassium 4.4 mmoL/L (3.5-5.1); Sodium 138 mmol/L (136-145); Total Protein,Serum 7.1 g/dl (6.3-8.2)
[2023-02-13 16:00] LABS: Free T4 (Free Thyroxine) 0.88 ng/dl (0.78-2.19)
[2023-02-13 16:15] LABS: Thyroid Stimulating Hormone 3.53 uIU/mL (0.465-4.68)
== END ==
PROVIDERS: PCP Internal Medicine Adolescent Medicine; Visit Provider Nurse Practitioner
DX: R06.00 Dyspnea, unspecified (principal); R60.9 Edema, unspecified; I63.9 Cerebral infarction, unspecified; E11.9 Type 2 diabetes mellitus without complications; E78.5 Hyperlipidemia, unspecified; Q21.12 Patent foramen ovale; Z87.74 Personal history of (corrected) congenital malformations of heart and circulatory system
CPT/HCPCS: 36415; 80048; 80076; 84439; 84443; 85025; 93926

== ENCOUNTER 2023-02-20 09:23 | Emergency (ER) | payer BC, SELFPAY ==
[2023-02-20] VITALS (31 sets, daily range): BP systolic 86–119; BP diastolic 62–94; PULSE 67–167; RESP 13–19; TEMP 36.7; O2SAT 94–100; BMI 32.5
--- NOTE | 2023-02-20 09:21 | ECG_ITS ---
APPROVED REPORT Exam: Resting ECG HR:147 bpm ECG Measurements Heart Rate 147 AXES QRSd 74 QRS 30 QT 282 T 63 QTc 366 Conclusion ATRIAL FIBRILLATION WITH RAPID VENTRICULAR RESPONSE ABNORMAL RHYTHM ECG UNCONFIRMED REPORT Electronically signed by : Roberto Reynaga MD 02/21/2023 01:41:35
--- NOTE | 2023-02-20 09:27 | PC.NURSE ---
DR PERALTA AT BEDSIDE
--- NOTE | 2023-02-20 09:36 | HMH.EDGENADL ---
Discharge Plan Disposition Patient Disposition: Home, Self-Care Condition: Good Prescriptions Prescriptions: New diltiazem HCl 240 mg capsule,extended release 24hr 240 mg PO DAILY Qty: 30 0RF Xarelto 20 mg tablet 20 mg PO DAILY Qty: 30 0RF Rx Instructions: must administer with evening meal No Action aspirin 81 mg tablet,delayed release (DR/EC) 81 mg PO DAILY Ubrelvy 100 mg tablet 100 mg PO ONCE PRN (Reason: migraine headache) Qty: 16 5RF Rx Instructions: Take 100 mg at onset of headache, may repeat 100 mg after 2 hours if symptoms persist. Max dose 200 mg in 24-hour. propranolol 20 mg tablet 20 mg PO BID Qty: 60 2RF Probiotic 3 billion cell capsule 3,000 mmu cells PO DAILY Rx Instructions: administer with a meal cetirizine 10 mg tablet 10 mg PO PRN Label Comments: TAKE ONE TABLET BY MOUTH ONCE DAILY NEEDED sertraline 25 mg tablet 25 mg PO DAILY mecobalamin (vitamin B12) 1,000 mcg tablet,disintegrating 1,000 mcg sublingual DAILY Rx Instructions: place tablet under tongue and allow to dissolve for at least30 secs before swallowing psyllium husk [Daily Fiber] 0.4 gram capsule 0.4 g PO DAILY Qulipta 60 mg tablet 60 mg PO DAILY Qty: 30 5RF clopidogrel [Plavix] 75 mg tablet 75 mg PO DAILY 90 Days Qty: 90 0RF Referrals Follow up/Referrals: Provider,Referral, MD [Referring] - See instructions Activity Restrictions/Add. Instructions Additional Instructions/Restrictions: Diltiazem CD daily. You received your first dose in the emergency room today. Start your prescription tomorrow. Xarelto 20 mg daily. You received your first dose today in the emergency room today. Start your prescription tomorrow. Follow-up with Dr. Jason and Dr. Thomson as instructed. Clinical Impressions Clinical Impression: Atrial fibrillation Discharge ED Provider: Leopoldo Hutchison Adult [facility] General Chief complaint: Arrhythmia/Palpitations Stated complaint: chest pain Time Seen by Provider: 02/20/23 09:25 Mode of Arrival: Wheelchair Limitations: No Limitations Description of Symptoms (Recalled from ER Triage Doc. by RN): PT SENT FROM DR JENKINS OFFICE FOR A-FIB WITH RVR PER EKG. PT REPORTS IRREGULAR FAST HEART RATE LAST NIGHT. PT HAD PFO CLOSURE LAST WEEK History of Present Illness HPI narrative: The patient is brought from cardiology clinic. She has new onset rapid atrial fibrillation. Dr. Thomson requests medication for rate control, heparin bolus and drip for PE protocol, CTA PE protocol, echocardiogram. On 02/09/2023 she had a PFO closure procedure. Last evening she began feeling uncomfortable in the chest. Heart felt like it was racing and discomfort going into her neck and arms. No significant shortness of breath. She has felt presyncopal, especially when she stands up. She has had diarrhea and nausea. She presented to the cardiology office today and was found to be in rapid atrial fibrillation, she has no prior history of atrial fibrillation. Related Data Home Medications Medication Instructions Recorded Confirmed aspirin 81 mg tablet,delayed 81 mg PO DAILY 08/07/19 02/20/23 release lactobacillus combination no.4 3 3,000 mmu cells PO DAILY 08/17/21 02/20/23 billion cell capsule (Probiotic) sertraline 25 mg tablet 25 mg PO DAILY 09/04/22 02/20/23 cetirizine 10 mg tablet 10 mg PO PRN 12/04/22 02/20/23 mecobalamin (vitamin B12) 1,000 1,000 mcg sublingual DAILY 12/04/22 02/20/23 mcg disintegrating tablet,sublingual psyllium husk 0.4 gram capsule 0.4 g PO DAILY 12/04/22 02/20/23 (Daily Fiber) Previous Rx's Medication Instructions Recorded atogepant 60 mg tablet (Qulipta) 60 mg PO DAILY #30 tabs 12/13/22 clopidogrel 75 mg tablet (Plavix) 75 mg PO DAILY 90 days #90 tabs 12/13/22 ubrogepant 100 mg tablet (Ubrelvy) 100 mg PO ONCE PRN migraine 01/10/23 headache #16 tabs propranolol 20 mg tablet
--- NOTE | 2023-02-20 09:39 | CT_ITS ---
FINAL REPORT TECHNIQUE: Axial imaging of the chest is obtained after the administration of contrast. 3-D MIP reformatted images were also obtained and reviewed per PE protocol. CLINICAL HISTORY: new rapid afib, recent pfo closure COMPARISON: 12/27/2022 FINDINGS: The pulmonary arteries are well filled. There is no evidence of pulmonary embolus. There is no aortic dissection or intimal flap. There is no mediastinal, hilar, or axillary lymphadenopathy. The lungs are clear. Incidental note is made of a right subclavian artery. PFO closure device is noted. There is no pleural or pericardial effusion. Limited evaluation of the upper abdomen is without acute abnormality. There is no acute osseous abnormality. IMPRESSION: No evidence of pulmonary embolism or aortic dissection. Reviewed, Interpreted and Dictated by Ines Nevarez MD Transcribed by Sepideh Colón Authenticated and . [facility]
--- NOTE | 2023-02-20 09:42 | CA_ITS ---
APPROVED REPORT EXAM: Comprehensive 2D, Doppler, and color-flow Echocardiogram Geology Associate: NAGI Cam, RVS Ht: 5 ft 3 in Wt: 185lbs BSA: 1.87 BP: 139/82 mmHg Indications: New AFib, Syncopal episodes, S/p ASD closure 02/09/23, Cryptogenic stroke Echo Enhancing Agent Indication: Rule out Shunt Agent(s) / Amount(s) Used: Agitated Saline 40 cc Comments: Positive bubble shunting with Valsalva and sniff 2D Dimensions Aortic Root 2.39 cm LA Volume 33.40 mL Left Atrium 2.81 cm LA Volume Index 17.40 mL/m2 (M/F) 16-34 LVOT 1.71 cm (M/F) 1.5-2.5 M-Mode Dimensions RVDd 1.89 cm (0.9-2.6) LA Diam 2.91 cm (1.9-4.0) LVDd 4.68 cm (3.5-5.7) Ao Diam 2.83 cm (2.0-3.7) LVDs 3.36 cm (3.5-5.7) IVSd 1.00 cm (0.6-1.1) PWd 0.79 cm (0.6-1.1) EF (Teich) 54.50% EPSs 0.65 cm FS 28.20% EDV (Teich) 101.30 mL ESV (Teich) 46.10 mL LV Diastology E Decel Time 140.00 (160-240 msec) E/A Ratio 3.26 MED E' 8.10 (< 7 cm/sec) MED A' 4.40 cm/s E'/MED E' Ratio 9.75 (>14) Aortic Valve AO Peak GR. 3.80 mmHg Mitral Valve MV A Velocity 24.00 (40-130 cm/s) E/A Ratio 3.26 MV Decel. Time 140.00 (160-240 ms) Pulmonary Valve PV Peak Velocity 78.00 (50-150 cm/s) Tricuspid Valve TR P. Velocity 165.00 cm/s Left Ventricle Technically difficult study because of the patient suspected, and patient being in atrial fibrillation with rapid ventricular response, left atrium is normal size left ventricle is normal size, probably estimated ejection fraction 45% with no regional wall motion abnormality. Right Ventricle Right atrium right ventricular normal size and contractility. Atria Status post PFO closure, agitated saline contrast study is inconclusive, however possibility of residual intracardiac shunt cannot be excluded. Aortic Valve Aortic valve is grossly normal there is no aortic stenosis or aortic insufficiency. Mitral Valve Mitral valve grossly normal, there is trace mitral regurgitation. Tricuspid Valve Tricuspid valve grossly normal, there is trace tricuspid regurgitation, tricuspid regurgitation jet plasty is inadequate for calculation of the right ventricular systolic pressure. Pulmonic Valve Pulmonic valve is poorly visualized. Great Vessels Aortic root is normal size. Inferior vena cava is poorly visualized. Pericardium No significant pericardial effusion noted. Conclusion 1. Technically difficult study as described above, normal left ventricular size, probably estimated ejection fraction is 45% with no regional wall motion abnormality, diastolic parameters are inconclusive. 2. Status post of PFO closure, agitated saline contrast study is inconclusive, however possibility of residual shunt cannot be excluded based on the study. 3. Trace mitral and tricuspid regurgitation. 4. No significant pericardial effusion noted. 5. Inferior vena cava is poorly visualized. Electronically signed by : Chase Huber MD 02/21/2023 05:44:37
[2023-02-20 09:52] LABS: PTT Heparin (inpatient only) 23.9 Seconds (23.6-34.0)
--- NOTE | 2023-02-20 09:53 | PC.NURSE ---
notified of pt's ptt-23.9
[2023-02-20 09:56] LABS: Alanine Aminotransferase 51 U/L (12-78); Albumin Level 4.6 g/dl (3.5-5.0); Alkaline Phosphatase 96 U/L (38-126); Anion Gap 12.5 mEq/L (5-15); Aspartate Amino Transferase 39 U/L (14-36); Bilirubin,Indirect 0.5 mg/dL (0.0-0.9); Bilirubin,Total 0.5 mg/dl (0.2-1.3); Bilirubin,Unconjugated 0.5 mg/dL (0.0-1.1); Blood Urea Nitrogen 12 mg/dl (7-17); Calcium 9.2 mg/dl (8.4-10.2); Carbon Dioxide 28 mmol/L (22.0-30.0); Chloride 104 mmol/L (98-107); Creatinine Clearance Estimated 123 mL/min (50-200); Estimated Glomerular Filt Rate 79 ml/min (>60); GFR (African American) 96 ML/MIN (>60); Glucose 103 mg/dl (74-100); Potassium 4.5 mmoL/L (3.5-5.1); Sodium 140 mmol/L (136-145); Total Protein,Serum 7.9 g/dl (6.3-8.2)
[2023-02-20 09:59] LABS: Coronavirus 19, PCR Not Detected (NotDetected); Influenza A, PCR Not Detected (NotDetected); Influenza B, PCR Not Detected (NotDetected)
[2023-02-20 10:03] LABS: INR 0.93 (0.9-1.1); Prothrombin Time 10.1 seconds (10.1-12.5)
[2023-02-20 10:07] LABS: Basophils # 0.1 K/mm3 (0-0.2); Basophils % 0.9 % (0.1-2.0); Eosinophils # 0.2 K/mm3 (0.0-0.4); Eosinophils % 1.8 % (0.1-12.0); Hemoglobin 16.1 g/dL (12.2-16.2); Lymphocytes # 3.7 K/mm3 (0.7-4.5); Lymphocytes % 36.4 % (10-50); Mean Corpuscular HGB Conc 32.9 g/dL (31.8-35.4); Mean Corpuscular Volume 91.2 fl (81-99); Mean Platelet Volume 8.9 fl (7.4-10.4); Monocytes # 0.7 K/mm3 (0.1-1.0); Monocytes % 6.4 % (1.7-9.3); Neutrophils # 5.6 K/mm3 (1.8-7.8); Neutrophils % 54.5 % (37.0-80.0); Platelet Count 476 K/mm3 (142-424); Red Blood Count 5.37 M/mm3 (4.20-5.40); Red Cell Distribution Width 13.3 % (11.5-17.5); White Blood Count 10.2 K/mm3 (4.8-10.8)
[2023-02-20 10:11] LABS: Troponin I < 0.01 ng/ml (0.00-0.034)
[2023-02-20 10:15] LABS: Free Thyroxine Index 2.3 ug/dL (5.93-13.13); T4 (Thyroxine) 8.4 ug/dl (5.53-11.0); Triiodothryronine (T3) Uptake 27 % (23.5-40.5)
--- NOTE | 2023-02-20 10:24 | PC.NURSE ---
Pt to CT for PE angiogram imaging and communicated wet read of bubble study that indicated potential refractorily PFO
[2023-02-20 10:29] LABS: Thyroid Stimulating Hormone 2.91 uIU/mL (0.465-4.68)
--- NOTE | 2023-02-20 11:10 | PC.NURSE ---
rounded on pt, secured left ac IV with coband
--- NOTE | 2023-02-20 11:19 | PC.NURSE ---
Discussed patient's heart rhythm and rate w ED attending and agreed to increase diltiazem drip to 7.5 mg /hr along with IV crystalloid infusion
--- NOTE | 2023-02-20 11:55 | P.CONPHA_ITS ---
[facility] Pharmacy Heparin Dosing Demographic Data Admission date:: 02/20/23 Date: 02/20/23 Time: 11:56 Allergies Allergy/AdvReac Type Severity Reaction Status Date / Time Sulfa (Sulfonamide Allergy Mild Rash Verified 02/20/23 09:02 Antibiotics) topiramate [From Topamax] Allergy Mild Verified 02/20/23 09:02 Height: 1.6 m Weight: 83.461 kg Indication Medication therapy:: Heparin Current Indications:: PE (HIGH DOSE PROTOCOL) Current Active Problems (Updated 02/20/23 @ 14:20 by Yoselin Andrews APRN) Atrial fibrillation with RVR (Acute) S/P patent foramen ovale closure (Acute) Cryptogenic stroke (Acute) CVA?: No Bleeding problem?: No Kidney disease?: No MS?: No Desired PTT range:: 50-75 seconds Labs Anticoagulation Lab Results:: 02/20/23 09:24 Hgb 16.1 Hct 49.0 H Plt Count 476 H Monitoring Dose Monitor 1: Date: 02/20/23 Time: 09:36 PTT Result:: 23.9 SECONDS (BASELINE PTT) Infusion Rate:: START HEPARIN DRIP AT 1500 UNITS/HOUR = 30 ML/HOUR AND BOLUS 6500 UNITS HEPARIN IV ONCE. Dose Monitor 2: Date: 02/20/23 Time: 11:00 PTT Result:: 181.6 SECONDS Infusion Rate:: CONTINUE CURRENT HEPARIN DRIP RATE OF 1500 UNITS/HOUR = 30 ML/HOUR PER PE (HIGH DOSE) PROTOCOL. Dose Monitor 3: Date: 02/20/23 Time: 12:00 PTT Result:: 128.5 SECONDS Infusion Rate:: CONTINUE CURRENT RATE OF 1500 UNITS/HOUR = 30 ML/HOUR Comment:: PATIENT CHANGED TO PO XARELTO 20 MG DAILY 02/20/23 AT 14:3.0 Core Measures Is INR > or = 2 at discharge?: No Most Recent Labs:: Laboratory Results - last 24 hr 02/20/23 09:24: APTT 23.9 02/20/23 09:24: WBC 10.2, RBC 5.37, Hgb 16.1, Hct 49.0 H, MCV 91.2, MCH 30.0, MCHC 32.9, RDW 13.3, Plt Count 476 H, MPV 8.9, Neut % (Auto) 54.5, Lymph % (Auto) 36.4, [place] % (Auto) 6.4, Eos % (Auto) 1.8, Baso % (Auto) 0.9, Neut # (Auto) 5.6, Lymph # (Auto) 3.7, [place] # (Auto) 0.7, Eos # (Auto) 0.2, Baso # (Auto) 0.1 02/20/23 09:24: Sodium 140, Potassium 4.5, Chloride 104, Carbon Dioxide 28, Anion Gap 12.5, BUN 12, Creatinine 0.80, Estimated Creat Clear 123, Estimated GFR 79, Est GFR ( Amer) 96, Glucose 103 H, Calcium 9.2, Total Bilirubin 0.5, Direct Bilirubin 0.0, Conjugated Bilirubin 0.0, Indirect Bilirubin 0.5, Unconjugated Bilirubin 0.5, AST 39 H, ALT 51, Alkaline Phosphatase 96, Troponin I < 0.01, Total Protein 7.9, Albumin 4.6 02/20/23 09:24: TSH 2.91, Free T4 Index 2.3 L, Thyroxine (T4) 8.4, T3 Uptake 27 02/20/23 09:24: PT 10.1, INR 0.93 02/20/23 09:50: SARS-CoV-2 (PCR) Not detected, Influenza A Untype (PCR) Not detected, Influenza Type B (PCR) Not detected If INR was < than 2.0 why was therapy stopped?: CHANGED TO XARELTO Were Heparin and Warfarin started on the same day?: No If not, why?: CHANGED TO XARELTO
[2023-02-20 11:56] LABS: PTT Heparin (inpatient only) 181.6 Seconds (23.6-34.0)
--- NOTE | 2023-02-20 12:08 | PC.NURSE ---
Dr Thomson with Cardiology at bedside approx 1200 and ordered additional dose of diltiazem 10mg IV push to be administered, followed by increase in drip rate to 10mg/hr
--- NOTE | 2023-02-20 12:18 | PC.NURSE ---
Diltiazem drip increased to 10mg/hr per Dr. Thomson
--- NOTE | 2023-02-20 12:21 | PC.NURSE ---
Called radiology regarding scans not being read; they are going to look for preliminary reports at this time
--- NOTE | 2023-02-20 12:30 | PC.NURSE ---
Heparin drip stopped pending communication with lab and pharmacy for PTT results
--- NOTE | 2023-02-20 12:39 | PC.NURSE ---
paged by Berto
[2023-02-20 12:58] LABS: PTT Heparin (inpatient only) 128.5 Seconds (23.6-34.0)
[2023-02-20 13:01] LABS: Troponin I < 0.01 ng/ml (0.00-0.034)
--- NOTE | 2023-02-20 13:06 | PC.NURSE ---
Spoke w Monique Thomson, reported latest Heparin PTT level and agreed will stop the heparin gtt for now and repeat ECG as pt;s rate has decreased w WDL
--- NOTE | 2023-02-20 13:11 | ECG_ITS ---
APPROVED REPORT Exam: Resting ECG HR:72 bpm ECG Measurements Heart Rate 72 AXES [place] 169 P 12 QRSd 84 QRS 6 QT 402 T 63 QTc 427 Conclusion SINUS RHYTHM NONSPECIFIC T-WAVE ABNORMALITY BORDERLINE ECG UNCONFIRMED REPORT Electronically signed by : Roberto Reynaga MD 02/21/2023 01:40:09
--- NOTE | 2023-02-20 14:11 | PC.NURSE ---
verbal order from Dr. Thomson to give patient 240 mg Cardizem po and 20 mg Xarelto po prior to discharge. Pharmacy called for medication.
--- NOTE | 2023-02-20 14:13 | EXP.CARD.CON ---
History of Present Illness History of Present Illness Consult date: 02/20/23 Requesting physician: Leopoldo Hutchison Consult reason: atrial fibrillation Chief complaint: palpitations, near syncope History of present illness: 42-year-old white female with history of cryptogenic stroke and recent PFO closure by Dr. Jason at (January 2023)presented to cardiology clinic today with complaints of palpitations, chest heaviness and near syncope since last night. Reports last night she started having palpitations and chest heaviness radiating into neck and arms associated with feeling faint with standing. No loc reported. EKG was obtained and was significant for new onset A-fib RVR with a rate in the 150s. Patient was transferred from cardiology clinic to emergency department and started on Cardizem and heparin drips. All labs were essentially unremarkable. Serial troponins are negative. A CTA of chest was negative for PE or other acute process. A preliminary echo shows an estimated EF > 50 and was reviewed by Dr. Thomson. Patient converted to NSR and rate is now controlled. [facility] Disclaimer: The information contained in this section may have been updated after the patient was seen, as this information can be updated by other users. Medical History Cryptogenic stroke Enthesopathy of ankle Headache, hemiplegic migraine History of thyroid nodule HLD (hyperlipidemia) Near syncope Palpitations PFO (patent foramen ovale) Uses oral contraceptives as primary control method Surgical History Status post tonsillectomy and adenoidectomy Family History Other No significant family history Social History (Updated 02/20/23 @ 09:33 by Norma Galdamez RN) Smoking Status: Never smoker alcohol intake: never substance use type: denies use current occupational status: employed Travel in the last 8 weeks: None Review of Systems Review of Systems Review of systems:: pertinent systems reviewed and negative unless documented below Constitutional Comments: Near syncope *Cardiovascular Cardiovascular: Reports chest pain and Reports rapid heart rate Exam Data for Last 24 hours Vital signs and Labs for Last 24 Hours: Temp Pulse Resp BP Pulse Ox 98.0 F 69 18 99/71 L 98 02/20/23 09:24 02/20/23 13:00 02/20/23 09:24 02/20/23 13:00 02/20/23 13:00 Laboratory Results - last 24 hr 02/20/23 09:24: APTT 23.9 02/20/23 09:24: WBC 10.2, RBC 5.37, Hgb 16.1, Hct 49.0 H, MCV 91.2, MCH 30.0, MCHC 32.9, RDW 13.3, Plt Count 476 H, MPV 8.9, Neut % (Auto) 54.5, Lymph % (Auto) 36.4, [place] % (Auto) 6.4, Eos % (Auto) 1.8, Baso % (Auto) 0.9, Neut # (Auto) 5.6, Lymph # (Auto) 3.7, [place] # (Auto) 0.7, Eos # (Auto) 0.2, Baso # (Auto) 0.1 02/20/23 09:24: Sodium 140, Potassium 4.5, Chloride 104, Carbon Dioxide 28, Anion Gap 12.5, BUN 12, Creatinine 0.80, Estimated Creat Clear 123, Estimated GFR 79, Est GFR ( Amer) 96, Glucose 103 H, Calcium 9.2, Total Bilirubin 0.5, Direct Bilirubin 0.0, Conjugated Bilirubin 0.0, Indirect Bilirubin 0.5, Unconjugated Bilirubin 0.5, AST 39 H, ALT 51, Alkaline Phosphatase 96, Troponin I < 0.01, Total Protein 7.9, Albumin 4.6 02/20/23 09:24: TSH 2.91, Free T4 Index 2.3 L, Thyroxine (T4) 8.4, T3 Uptake 27 02/20/23 09:24: PT 10.1, INR 0.93 02/20/23 09:50: SARS-CoV-2 (PCR) Not detected, Influenza A Untype (PCR) Not detected, Influenza Type B (PCR) Not detected 02/20/23 11:05: APTT 181.6 H* 02/20/23 12:13: Troponin I < 0.01 02/20/23 12:13: APTT 128.5 H* I & O for Last 24 hours: Intake & Output 02/17/23 02/18/23 02/19/23 02/20/23 23:59 23:59 23:59 23:59 Weight 184 lb Constitutional Constitutional: no acute distress *Routine Respiratory Exam Respiratory: Present CTA bilaterally and symmetric chest movement *Routine Cardiovascular Exam Cardiovascular: Present RRR, Normal S1 and Normal S2 *Routine Ab
--- NOTE | 2023-02-20 14:43 | PC.NURSE ---
pt given po meds, wait one hour per air intelligence specialist and then dc
== END 2023-02-20 15:36 | disposition home or self-care (01) ==
PROVIDERS: Emergency Provider Emergency Medicine; PCP Internal Medicine Adolescent Medicine
DX: I48.91 Unspecified atrial fibrillation (principal)
CPT/HCPCS: 36415; 71275; 80048; 80076; 84436; 84443; 84479; 84484; 85025; 85610; 85730; 93005; 93306; 96360; 96361; 96374; 96375; 96376; 99291; C9803; Q9967; U0003; U0005

== ENCOUNTER → 2023-03-07 20:24 | Outpatient (CLI) | payer BC, SELFPAY | PROVIDERS: PCP Internal Medicine Adolescent Medicine; Visit Provider Nurse Practitioner Family | DX: G47.30 Sleep apnea, unspecified (principal); R40.0 Somnolence; R06.83 Snoring; I63.9 Cerebral infarction, unspecified | CPT/HCPCS: 95810 ==

== ENCOUNTER → 2023-08-25 08:05 | Outpatient (CLI) | payer BC, SELFPAY ==
[2023-08-25 08:50] LABS: Basophils % 0.2 % (0.1-2.0); Eosinophils % 0.1 % (0.1-12.0); Hematocrit 44.7 % (37.0-47.0); Hemoglobin 14.8 g/dL (12.2-16.2); Lymphocytes # 1.6 K/mm3 (0.7-4.5); Lymphocytes % 14.3 % (10-50); Mean Corpuscular HGB Conc 33.1 g/dL (31.8-35.4); Mean Corpuscular Hemoglobin 29.7 pg (27.0-31.2); Mean Corpuscular Volume 89.8 fl (81-99); Mean Platelet Volume 9.4 fl (7.4-10.4); Monocytes # 0.5 K/mm3 (0.1-1.0); Monocytes % 4.2 % (1.7-9.3); Neutrophils # 8.8 K/mm3 (1.8-7.8); Neutrophils % 81.2 % (37.0-80.0); Platelet Count 351 K/mm3 (142-424); Red Blood Count 4.97 M/mm3 (4.20-5.40); Red Cell Distribution Width 12.8 % (11.5-17.5); White Blood Count 10.9 K/mm3 (4.8-10.8)
[2023-08-25 09:50] LABS: Alanine Aminotransferase 26 U/L (12-78); Albumin Level 4.1 g/dl (3.5-5.0); Albumin/Globulin Ratio 1.2 (1.1-1.8); Alkaline Phosphatase 104 U/L (38-126); Aspartate Amino Transferase 22 U/L (14-36); Bilirubin,Total 0.5 mg/dl (0.2-1.3); Blood Urea Nitrogen 11 mg/dl (7-17); Calcium 9.4 mg/dl (8.4-10.2); Carbon Dioxide 27 mmol/L (22.0-30.0); Chloride 104 mmol/L (98-107); Chol/HDL Ratio 5.6 (1-3.5); Cholesterol 219 mg/dl (140-200); Estimated Glomerular Filt Rate 92 ml/min (>60); GFR (African American) 112 ML/MIN (>60); Globulin 3.3 g/dL (1.3-3.2); Glucose 111 mg/dl (74-100); HDL Cholesterol 39 mg/dl (40-60); Sodium 139 mmol/L (136-145); Total Protein,Serum 7.4 g/dl (6.3-8.2); Triglycerides 91 mg/dl (30-150); VLDL Cholesterol 18 mg/dL (0-40)
[2023-08-25 10:02] LABS: Direct LDL Cholesterol 137.12 mg/dL (100-129)
[2023-08-25 10:08] LABS: Free Thyroxine Index 2.5 ug/dL (5.93-13.13); T4 (Thyroxine) 7.7 ug/dl (5.53-11.0); Triiodothryronine (T3) Uptake 33 % (23.5-40.5)
[2023-08-25 10:42] LABS: Vitamin B12 379 pg/mL (239-931)
[2023-09-05 01:08] LABS: Thyroglobulin RIA CHARGE YES; Thyroglobulin by RIA 22 ng/mL (.)
== END ==
PROVIDERS: PCP Internal Medicine Adolescent Medicine; Visit Provider Nurse Practitioner Family
DX: Z00.00 Encounter for general adult medical examination without abnormal findings (principal); E06.9 Thyroiditis, unspecified; E53.8 Deficiency of other specified B group vitamins
CPT/HCPCS: 36415; 80053; 80061; 82607; 84436; 84443; 84479; 85025; 86800

== ENCOUNTER → 2023-10-23 10:43 | Outpatient (CLI) | payer BC, SELFPAY ==
[2023-10-23 12:14] LABS: Triiodothryronine (T3) Uptake 29 % (23.5-40.5)
[2023-10-23 12:15] LABS: Free Thyroxine Index 2.1 ug/dL (5.93-13.13); T4 (Thyroxine) 7.1 ug/dl (5.53-11.0)
[2023-10-23 12:29] LABS: Thyroid Stimulating Hormone 1.45 uIU/mL (0.465-4.68)
[2023-10-23 12:40] LABS: Thyroid Stimulating Hormone 1.43 uIU/mL (0.465-4.68)
[2023-10-24 12:49] LABS: Thyroid Peroxidase Antibodies >600 IU/mL (0-34)
[2023-10-24 14:12] LABS: Thyroglobulin Level 7.2 IU/mL (0.0-0.9)
== END ==
PROVIDERS: PCP Internal Medicine Adolescent Medicine; Visit Provider Internal Medicine Adolescent Medicine
DX: E06.9 Thyroiditis, unspecified (principal)
CPT/HCPCS: 36415; 84436; 84443; 84479; 86376; 86800

== ENCOUNTER 2023-11-28 16:17 | Outpatient (CLI) | payer BC, SELFPAY ==
--- NOTE | 2023-11-28 16:27 | XR_ITS ---
PROCEDURE INFORMATION: Exam: XR Left Foot Complete; Alignment Exam date and time: 11/28/2023 4:50 PM Age: 43 years old Clinical indication: Pain; Foot; Left; Additional info: Foot pain TECHNIQUE: Imaging protocol: Radiologic exam of the left foot. Views: 3 or more views. Total images: 3 COMPARISON: CA VENOUS DOPPLER LE BI 12/27/2022 11:03 AM FINDINGS: Bones/joints: No evidence of acute fracture or dislocation. Soft tissues: Soft tissues are within normal limits. IMPRESSION: No evidence of acute fracture or dislocation.
--- NOTE | 2023-11-28 16:27 | XR_ITS ---
PROCEDURE INFORMATION: Exam: XR Right Foot Complete; Alignment Exam date and time: 11/28/2023 4:50 PM Age: 43 years old Clinical indication: Pain; Ankle and foot; Right; Additional info: Right foot pain. Pain is worse in lateral side of right ankle. TECHNIQUE: Imaging protocol: Radiologic exam of the right foot. Views: 3 or more views. Total images: 3 COMPARISON: US CA ARTERIAL PSEUDO RT LOWER 02/13/2023 2:21 PM FINDINGS: Bones/joints: No evidence of acute fracture or dislocation. Soft tissues: Soft tissues are within normal limits. IMPRESSION: No evidence of acute fracture or dislocation.
--- NOTE | 2023-11-28 16:27 | MM_ITS ---
PROCEDURE INFORMATION: Exam: MG Bilateral Screening 3D Mammography Exam date and time: 11/28/2023 4:18 PM Age: 43 years old Clinical indication: Screening mammogram TECHNIQUE: Imaging protocol: Bilateral Screening tomosynthesis and 2D mammography including computer-aided detection (CAD) when performed. COMPARISON: 1. MG MM DIG SCREENING MAMM BI W/CAD 12/04/2022 4:46 PM 2. MG MM DIG MAMM BI DX W/CAD 11/16/2021 1:27 PM 3. MG MM DIG MAMM DX UNILAT RT CAD 05/09/2021 1:54 PM 4. MG MM DIG MAMM DX UNILAT RT CAD 09/28/2020 2:03 PM FINDINGS: MAMMOGRAPHY: Breast composition: There are scattered areas of fibroglandular density. Mass: None. Architectural distortion: No new or suspicious architectural distortion. Calcifications: No new or suspicious calcifications are present Asymmetric density: No new or suspicious asymmetric density is present Skin thickening: None. Axillary adenopathy: None. IMPRESSION: No mammographic evidence of malignancy. Recommend annual screening mammography unless otherwise clinically indicated. ASSESSMENT: BI-RADS category 1: Negative
== END 2023-11-28 23:59 ==
PROVIDERS: PCP Internal Medicine Adolescent Medicine; Referring Provider Podiatrist; Visit Provider Nurse Practitioner Obstetrics & Gynecology
DX: M79.671 Pain in right foot (principal); M79.672 Pain in left foot; Z12.31 Encounter for screening mammogram for malignant neoplasm of breast
CPT/HCPCS: 73630; 77063; 77067

== ENCOUNTER 2024-01-24 17:49 | Outpatient (CLI) | payer BC, SELFPAY ==
--- NOTE | 2024-01-24 17:50 | MR_ITS ---
PROCEDURE INFORMATION: Exam: MR Right Lower Extremity Joint Without Contrast; Ankle Exam date and time: 01/24/2024 6:06 PM Age: 43 years old Clinical indication: Patient HX: Right ankle pain TECHNIQUE: Imaging protocol: Magnetic resonance imaging of the right lower extremity without contrast. Exam focused on the ankle. COMPARISON: CR XR FOOT WT BEARING RT 3V 11/28/2023 4:50 PM FINDINGS: Bones/joints: Otherwise unremarkable. LIGAMENTS: Distal tibiofibular syndesmosis: Unremarkable. No tear. Anterior talofibular ligament: Unremarkable. No tear. Posterior talofibular ligament: Unremarkable. No tear. Calcaneofibular ligament: Unremarkable. No tear. Deltoid ligament complex: Unremarkable. No tear. TENDONS: Flexor tendons of foot: Unremarkable as visualized. Tibialis posterior tendon: Unremarkable as visualized. Peroneal tendons: Unremarkable as visualized. Extensor tendons of foot: Unremarkable as visualized. Tibialis anterior tendon: Unremarkable as visualized. Achilles tendon: Minimal edema subcutaneous fat posterior to distal insertion of the Achilles is nonspecific. May be a minimal contusion or focus of inflammation. Tiny focus of edema pre Achilles fat pad just above distal insertion which may be minimal peritendinitis. The tendon itself appears unremarkable. Tarsal canal (Sinus tarsi): Unremarkable. Normal signal of the fat. Tarsal tunnel: Unremarkable. Soft tissues: See Achilles tendon finding. Plantar fascia: Plantar fascia is unremarkable. IMPRESSION: 1. Minimal edema subcutaneous fat posterior to distal insertion of the Achilles is nonspecific. May be a minimal contusion or focus of inflammation. 2. Tiny focus of edema pre Achilles fat pad just above distal insertion which may be minimal peritendinitis. The tendon itself appears unremarkable. 3. Otherwise unremarkable.
== END 2024-01-24 23:59 ==
LOC: RAD 17:50
PROVIDERS: PCP Internal Medicine Adolescent Medicine; Visit Provider Podiatrist
DX: M25.371 Other instability, right ankle (principal); M76.71 Peroneal tendinitis, right leg; Q66.89 Other specified congenital deformities of feet
CPT/HCPCS: 73721

== ENCOUNTER 2024-02-26 09:52 | Outpatient (CLI) | payer BC, SELFPAY ==
[2024-02-26 09:58] LABS: Microscopic, Urine URINE MICROSCOPIC (MICROSCOPIC)
--- NOTE | 2024-02-26 10:11 | XR_ITS ---
FINAL REPORT CLINICAL HISTORY: Productive green cough, wheezing, and soa. Pre op for upcoming fx repair in right foot. Non smoker. Hx of Septal Occluder January 2023 & loop recorder Aug 2023. FINDINGS: 2 views of the chest were obtained. The heart size is normal. Postoperative changes are seen from ASD repair. The pulmonary vascularity is within normal limits. The lungs are clear. A loop recorder is present. The bony thorax is intact. IMPRESSION: No active cardiopulmonary disease. Authenticated and [facility]
[2024-02-26 10:18] LABS: Basophils # 0.1 K/mm3 (0-0.2); Basophils % 1.5 % (0.1-2.0); Eosinophils # 0.1 K/mm3 (0.0-0.4); Eosinophils % 2.5 % (0.1-12.0); Hematocrit 47.3 % (37.0-47.0); Hemoglobin 15.6 g/dL (12.2-16.2); Lymphocytes # 2.2 K/mm3 (0.7-4.5); Lymphocytes % 43.3 % (10-50); Mean Corpuscular HGB Conc 32.9 g/dL (31.8-35.4); Mean Corpuscular Hemoglobin 31.2 pg (27.0-31.2); Mean Platelet Volume 8.7 fl (7.4-10.4); Monocytes # 0.3 K/mm3 (0.1-1.0); Monocytes % 6.4 % (1.7-9.3); Neutrophils # 2.4 K/mm3 (1.8-7.8); Neutrophils % 46.3 % (37.0-80.0); Platelet Count 299 K/mm3 (142-424); Red Blood Count 4.98 M/mm3 (4.20-5.40); White Blood Count 5.2 K/mm3 (4.8-10.8)
[2024-02-26 10:34] LABS: Erythrocyte Sedimentation Rate 14 mm/hr (0-20)
[2024-02-26 10:49] LABS: Alanine Aminotransferase 20 U/L (12-78); Albumin Level 4.2 g/dl (3.5-5.0); Albumin/Globulin Ratio 1.5 (1.1-1.8); Alkaline Phosphatase 84 U/L (38-126); Anion Gap 8.1 mEq/L (5-15); Aspartate Amino Transferase 24 U/L (14-36); Bilirubin,Total 0.4 mg/dl (0.2-1.3); Blood Urea Nitrogen 12 mg/dl (7-17); Calcium 9.5 mg/dl (8.4-10.2); Carbon Dioxide 29 mmol/L (22.0-30.0); Chloride 107 mmol/L (98-107); Estimated Glomerular Filt Rate 92 ml/min (>60); GFR (African American) 112 ML/MIN (>60); Globulin 2.8 g/dL (1.3-3.2); Glucose 91 mg/dl (74-100); Potassium 4.1 mmoL/L (3.5-5.1); Sodium 140 mmol/L (136-145)
[2024-02-26 10:51] LABS: Alanine Aminotransferase 20 U/L (12-78); Albumin Level 4.1 g/dl (3.5-5.0); Alkaline Phosphatase 83 U/L (38-126); Aspartate Amino Transferase 24 U/L (14-36); Bilirubin,Direct 0.1 mg/dl (0.0-0.4); Bilirubin,Indirect 0.2 mg/dL (0.0-0.9); Bilirubin,Total 0.3 mg/dl (0.2-1.3); Bilirubin,Unconjugated 0.3 mg/dL (0.0-1.1); Chol/HDL Ratio 4.1 (1-3.5); Cholesterol 200 mg/dl (140-200); HDL Cholesterol 49 mg/dl (40-60); Magnesium 2.1 mg/dl (1.6-2.3); Total Protein,Serum 6.9 g/dl (6.3-8.2); Triglycerides 93 mg/dl (30-150); VLDL Cholesterol 19 mg/dL (0-40)
[2024-02-26 10:55] LABS: Appearance,Urine CLEAR (Clear); Bilirubin,Urine Negative (Negative); Blood, Urine Negative (Negative); Color,Urine YELLOW (Yellow); Glucose,Urine (UA) Negative (Negative); Ketones,Urine Negative (Negative); Leukocyte Esterase,Urine 1+ (Negative); Nitrate,Urine Negative (Negative); Protein,Urine Negative (Negative); Urobilinogen,Urine 0.2 EU/dl (0.2)
[2024-02-26 11:02] LABS: Direct LDL Cholesterol 116.09 mg/dL (100-129)
[2024-02-26 11:19] LABS: Thyroid Stimulating Hormone 0.84 uIU/mL (0.465-4.68)
[2024-02-26 11:43] LABS: WBC,Urine 20-50 #/hpf (0-3)
[2024-02-26 11:44] LABS: Bacteria,Urine Trace /lpf; RBC,Urine Occasional #/hpf (0-3); Squamous Epithelial Cell,Urine 20-50 #/hpf (0-5)
[2024-02-26 11:55] LABS: Vitamin B12 343 pg/mL (239-931)
[2024-02-26 11:56] LABS: Folate 4.63 ng/mL
[2024-03-03 17:46] LABS: 1,25 Dihydroxy Vitamin D 81 pg/mL (.); 1,25-Dihydroxy, Vitamin D-2 <10 pg/mL (.); 1,25-Dihydroxy, Vitamin D-3 79 pg/mL (.)
[2024-03-04 08:28] LABS: PTH Related Peptide < 2.0
== END 2024-02-26 23:59 ==
LOC: LAB 09:53
PROVIDERS: Internal Medicine; PCP Internal Medicine Adolescent Medicine; Visit Provider Podiatrist
DX: Z01.818 Encounter for other preprocedural examination (principal); R55 Syncope and collapse; R00.2 Palpitations; E78.5 Hyperlipidemia, unspecified
CPT/HCPCS: 36415; 71046; 80053; 80061; 80076; 81001; 82397; 82607; 82652; 82746; 83735; 84439; 84443; 85025; 85651; 86140; 87086

== ENCOUNTER 2024-03-19 11:25 | Day surgery (SDC) | payer BC, SELFPAY ==
[2024-03-19] VITALS (8 sets, daily range): BP systolic 114–130; BP diastolic 70–86; PULSE 67–88; RESP 12–19; TEMP 26.6–43; O2SAT 97–99; BMI 30.6
[2024-03-19] MEDS: LACTATED RINGERS 1000ML 1,000 ML 100 ML IV (12:02)
[2024-03-19 12:12] LABS: Urine Pregnancy, HCG Qual. Negative (Negative)
--- NOTE | 2024-03-19 14:13 | P.PNANES_ITS ---
[facility] Disclaimer: The information contained in this section may have been updated after the patient was seen, as this information can be updated by other users. Medical History Atrial fibrillation Palpitations Near syncope Enthesopathy of ankle History of thyroid nodule HLD (hyperlipidemia) PFO (patent foramen ovale) Status post closure, 02/09/2023, Dr. Jason, [facility] [place] Cryptogenic stroke Headache, hemiplegic migraine Surgical History History of surgery PFO closure Status post tonsillectomy and adenoidectomy Family History Mother Cancer breast Father Cancer prostate Social History Smoking Status: Never smoker alcohol intake: never substance use type: denies use current occupational status: employed Travel in the last 8 weeks: None [facility] Anesthesia Checklist Patient Identification Patient Identification: Arm Band Structural Data Admitted From: Home Planned Operative Procedure/s: Left Peroneal Tenosynovectomy Consent for Planned Operative Procedure(s) Verified: Yes Verified Documents: Surgical Consent, History and Physical and Cardiac Clearance NPO Status Verified Time NPO: 00:00 Additional verifications Anesthesia Reactions: No Hx Blood Transfusions: No Blood Transfusion Reaction: No Airway Assessment Mallampati Score:: Class II C-Spine Mobility Assessed: Yes TMJ Mobility Assessed: Yes Dentition: Good Dentition Neurological Assessment Level of Consciousness: Awake, Alert and Appropriate Anesthesia Plan Anesthesia Risk discussed: Yes Anesthesia Plan: Verified ASA Class: III Anesthesia Type: General w/block (Right Popliteal/Adductor Canal. Risks/benefits explained, pt verbalized understanding)
--- NOTE | 2024-03-19 14:59 | XR_ITS ---
FINAL REPORT CLINICAL HISTORY: R TARSAL COALITION fluoro time: .23 0.77 mgy FINDINGS: FLUOROSCOPY LESS THAN 1 HOUR HISTORY: Fluoroscopy guidance. Fluoroscopic guidance was provided for right tarsal coalition. 3 spot films were obtained. A total of 0.23 minutes of fluoroscopy time were used. Total DAP: 0.77 mGy IMPRESSION: As above. Reviewed, Interpreted and Dictated by Jesus Elkins MD Transcribed by Shani Okeefe Authenticated and [facility]
[2024-03-19] MEDS: CEFAZOLIN SODIUM 1 GM in 0.9 % SODIUM CHLORIDE 50 ML IV (15:01)
--- NOTE | 2024-03-19 15:30 | XR_ITS ---
FINAL REPORT CLINICAL HISTORY: Tarsal coalition resection, talus fx frag removal FINDINGS: Right foot Three views were obtained. There is no acute fracture or dislocation. The joint spaces appear normal. A splint is in place obscuring some of the bony detail. IMPRESSION: No acute process. Reviewed, Interpreted and Dictated by Jesus Elkins MD Transcribed by Sepideh Colón Authenticated and [facility]
--- NOTE | 2024-03-19 15:30 | XR_ITS ---
FINAL REPORT CLINICAL HISTORY: Post op ankle stab FINDINGS: Right ankle Three views were obtained. There is no acute fracture or dislocation. The joint spaces appear normal. A splint is in place obscuring some of the bony detail. The mortise is intact. IMPRESSION: No acute process. Reviewed, Interpreted and Dictated by Jesus Elkins MD Transcribed by Sepideh Colón Authenticated and [facility]
--- NOTE | 2024-03-19 15:59 | P.PNANES_ITS ---
[facility] Anesthesia Record Part I Anesthesia Record I Intake, IV Amount: 2,500 Hydration: Adequate Estimated blood loss (mL): 0 Urine output (mL): 0 Blood Pressure: 126/86 SaO2: 98 Pulse Rate: 87 Airway Patency: Patent Respiratory Rate: 12 Temperature: 97.8 F Patient is:: Awake and Stable Stable to PACU at:: 15:50
--- NOTE | 2024-03-19 16:18 | P.OP_ITS ---
Date of procedure: 03/19/24 Pre-op Diagnosis:: Right tarsal coalition Right ankle instability Right peroneus longus tenosynovitis Right peroneus brevis tenosynovitis, tear Right gastroc anemias equinus Right nerve impingement/neuritis Right ankle synovitis Post-op Diagnosis:: Same + STJ synovitis Procedure performed:: Right tarsal coalition resection (18126) modified Brostr?m ankle stabilization (44591) ankle arthroscopy w/limited debridement (51539) shepherds fracture fragment/partial excision talus (82432) peroneus longus tenosynovectomy (37791) peroneus brevis tendon repair (allograft) (30066) ankle and subtalar joint synovectomy nerve decompression (99977) posterior splint application Surgeon:: Breanna Vasques DPM PRINCIPAL NETWORK ARCHITECT:: Smooth Lou Anesthesia: GETA and regional (R popliteal nerve block) Estimated blood loss (mL): 20 Clinical Note:: 43-year-old female with chronic right foot and ankle pain for over 1 year. Imaging confirms chronic ankle instability secondary to tears of the ATFL/CFL, peroneal tendinitis, partial longitudinal tear of the peroneus longus tendon, CN bar/tarsal coalition, ankle impingement, neuritis, shepherds fracture (fracture of the lateral tubercle of the posterior process of the talus). Discussed stabilization of the lateral ankle (modified Brostr?m), peroneal tendon debridement and repair (possible allograft versus tendon anastomosis), resection of tarsal coalition, ankle synovectomy, nerve decompression, excision of shepherds fracture fragment. The patient has been instructed on the planned procedure, all risk versus benefits of the procedure discussed. These include but are not limited to: bleeding, infection, nerve and blood vessel damage, need/worsening neuritis, nerve entrapment, hypertrophic scar, need for further surgery (including but not limited to ankle or STJ fusion due to posttraumatic arthritis and/or coalition), delay in healing of soft tissue or bone, tendon re- rupture, failure of bones to heal, non-union, mal-union, failure of the implant, prolonged pain and recovery, prolonged/permanent edema, CRPS/RSD, DVT/PE and anesthetic complications including . No guarantees were given. All questions fully answered. The patient verbalized understanding and agreed to proceed with surgery. Written consent needed. Necessary labs reviewed. Medical clearance per Dr Reynaga's office. Cardiac clearance per Dr Jason/Dr Solo. 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 Coalition was resected and normal range of motion noted. No significant pes planus or obvious arthritic deformity noted. Positive anterior drawer and talar tilt preoperatively. The ATFL was torn, CFL partially torn. The peroneus longus tendon had tenosynovitis. The peroneus brevis tendon had tenosynovitis as well as a longitudinal split tear about 3 cm long just proximal to the distal malleolus along the course of the tendon. There was a low-lying brevis muscle belly. Synovitis noted to the posterior subtalar joint and ankle. 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 After removal of the fracture fragment, FHL tendon was taken through range of motion and was noted to be normal. No obvious signs of FHL tendon tearing. The posterior subtalar joint had mild early arthritic changes. Post repair, negative anterior drawer, negative talar tilt. Ankle and subtalar joint ranges of motion were smooth without crepitus. Operative note:: On this date and time patient was deemed an appropriate surgical candidate. Pre- op regional popliteal nerve block performed by anesthesia. With informed consent signed, the patient was taken to the operating theater. The patient was positioned supine. General anesthesia was induced. Tourniquet was applied to the right mid-calf @225mmHg. The lower extremity was prepped and draped in normal sterile fashion. IV Ancef given. Right tarsal coalition resection: Attention was directed to the lateral foot where an incision was made over the anterior process of the calcaneus. Full- thickness dissection with care to maintain surgical hemostasis is a clear track neurovascular structures. Dissection carried down to the level of the calcaneal navicular fibrous coalition. Intraoperative fluoroscopy was used to visualize the coalition under live fluoroscopy. Osteotome was used to break the coalition. Postcollision resection range of motion with fluid. The anterior and middle subtalar joint had no obvious arthritic changes. Wound was flushed with saline. Right ankle arthroscopy: Next a separate incision was made to the posterior ankle and a standard scope was inserted into the posterior ankle. The irregular posterior talus consistent with the fracture was visualized. Ankle manually distracted. There were synovitic changes noted to the ankle joint. Minimal/limited debridement with shaver. The posterior aspect of the subtalar joint was also visualized through the scope and synovitis was noted. There was no obvious osteochondral defects appreciated. Right excision of fracture fragment: Under intraoperative fluoroscopy and utilizing the scope camera, the posterior piece of the talus fracture nonunion was resected. It was sent to pathology as a specimen. The posterior talus had some exposed cancellous bone and mild posterior subtalar joint arthritic changes. Hand rasp used to smooth down the irregular talus prominence from the fracture fragment removal. Right ankle/subtalar joint synovitis: Next utilizing a rongeur, 15 blade and forceps the synovitic tissue was debrided from both the posterior ankle and subtalar joints. Wounds were flushed with saline. Right modified Brostr?m, nerve decompression: Incision was then made over the lateral ankle extending along the course of the peroneal tendons and connecting down to the previous incision over calcaneus. Full-thickness dissection with care to maintain surgical hemostasis to safely retract neurovascular structures. The lateral cutaneous nerve was identified. There was some mild thickening to the nerve. The nerve was freed from the soft tissue. Nerve was later wrapped with a piece of the allograft. The ATFL was identified and torn. The CFL was partially torn. There was increased talar tilt and anterior drawer. The synovitic tissue around the ligaments was debrided with 15 blade and forceps. Wound was flushed. Next a standard technique a 3.5 mm bone anchor was inserted into the distal fibula, position confirmed under x-ray. A bone anchor was placed and the ATFL was repaired. Next 2-0 FiberWire was used to repair the CFL. Repair incorporated into the extensor retinaculum. Ankle range of motion was fluid with negative anterior drawer and negative talar tilt. Right peroneus longus tenosynovectomy: Attention was then directed to the peroneal tendons which both had tenosynovitis. 15 blade forceps used to debride the longus tendon of the tenosynovitis. No longus tear noted. Right peroneus brevis tendon debridement and repair, allograft: The brevis tendon had a longitudinal split tear just proximal to distal fibula extending distally about 3 cm long. Low-lying muscle belly was resected. Nonviable tendon was debrided. Specimen sent to pathology. Wound flushed with saline. 4-0 Vicryl was used to retubularize the flattened tendon. 4-0 Prolene was then used to retubularize the outside of the tendon in a running baseball fashion. Tendon tension and excursion was appropriate. All wounds were flushed. Due to the excessive synovitic tissue and defect in the brevis tendon, decision was made to use an allograft around the repair site. A piece of amniotic graft was wrapped around the brevis repair site. Deep and subcutaneous closure with Vicryl. The remaining piece of the amniotic graft was placed over the cutaneous nerve prior to skin closure. Application of posterior splint: The tourniquet was deflated at 90 minutes and immediate hyperemic response was noted to the digits. The wounds were cleansed. Xeroform, dry sterile dressing was then applied followed by a below knee modified Lugo posterior splint. The patient was awoken from anesthesia and transfer to recovery with vital signs stable and neurovascular status intact. IV Toradol given. Patient appeared to tolerate procedure and anesthesia well without complication. Materials: [employer] 3.5mm Anchors x1, [place] amniotic graft x1 (4x3cm), Viaflow (2cc) Discharge/Plan: Patient is to maintain splint clean dry and intact. Polar pack /ice behind the knee and elevate on foam ramp or two pillows. Non weight bearing with crutches and RKS. e-Rx given for [place] 7.5, Zofran, Toradol, gabapentin. Obtain post op films, 3 views right foot/ankle. Follow up in one week. Tourniquet time (min): 90 Condition: stable Disposition: same day Specimens:: Right peroneal tendon Right talus fracture fragment Complications:: None
--- NOTE | 2024-03-20 08:16 | EXP.ANES.II ---
[facility] Anesthesia Record Part II Anesthesia Record Part II Discharge Time: 16:20 Destination: Surgical Day Care (OP Surgery) PACU nurse assessment reviewed?: Yes Patient Condition:: Good Anesthesia Complications:: None Swallowing reflex intact?: Yes Airway Patency: Patent Cyanosis?: No Blood Pressure: 130/70 SaO2: 98 Respiratory Rate: 19 Pulse Rate: 73 Temperature: 97.9 F Mental Status: Alert & Oriented Pain level:: 0 Nausea and/or vomitting:: None Intake, IV Amount: 0 Hydration: Adequate
[2024-03-20 08:22] VITALS: BP 130/70; PULSE 73; RESP 19; TEMP 36.6; O2SAT 98
== END 2024-03-19 16:50 | disposition home or self-care (01) ==
PROVIDERS: PCP Internal Medicine Adolescent Medicine; Visit Provider Podiatrist
PROC: (CPT 28116; principal; 2024-03-19 12:45)
DX: S86.311A Strain of muscle(s) and tendon(s) of peroneal muscle group at lower leg level, right leg, initial encounter (principal); S92.131A Displaced fracture of posterior process of right talus, initial encounter for closed fracture; M79.671 Pain in right foot; M25.571 Pain in right ankle and joints of right foot; M25.371 Other instability, right ankle; Z79.899 Other long term (current) drug therapy; I48.91 Unspecified atrial fibrillation; E78.5 Hyperlipidemia, unspecified
CPT/HCPCS: 28116; 27696; 27626; 29897; 64704; 15275; 73600; 73610; 73630; 76000; 81025; 96374; C1713; C1762; J2405; Q4211

== ENCOUNTER 2024-06-05 12:34 | Outpatient (CLI) | payer BC, SELFPAY ==
--- NOTE | 2024-06-05 12:41 | XR_ITS ---
FINAL REPORT CLINICAL HISTORY: f/u from surgery, lateral ankle, shepherds fx pain and area of concern is 3-5th metatarsals COMPARISON: None FINDINGS: LEFT ANKLE: Three views of the left ankle were obtained. There is no acute fracture or dislocation. The joint spaces and mortise are intact. Lateral soft tissue swelling is present. IMPRESSION: No acute bony abnormality. Lateral soft tissue swelling. Reviewed, Interpreted and Dictated by Mason Anderson III, MD Transcribed by Doris Gutiérrez Authenticated and [facility]
--- NOTE | 2024-06-05 12:41 | XR_ITS ---
FINAL REPORT CLINICAL HISTORY: f/u from surgery, lateral ankle, shepherds fx pain and area of concern is 3-5th metatarsals COMPARISON: None FINDINGS: RIGHT FOOT: Three views of the right foot were obtained. There is no acute fracture or dislocation. The joint spaces are intact. There is no soft tissue abnormality. IMPRESSION: No acute bony abnormality. Reviewed, Interpreted and Dictated by Mason Anderson III, MD Transcribed by Doris Gutiérrez Authenticated and [facility]
== END 2024-06-05 23:59 | disposition home or self-care (01) ==
LOC: RAD 12:34
PROVIDERS: PCP Internal Medicine Adolescent Medicine; Visit Provider Podiatrist
DX: M25.871 Other specified joint disorders, right ankle and foot (principal); M25.371 Other instability, right ankle; M76.71 Peroneal tendinitis, right leg
CPT/HCPCS: 73610; 73630

== ENCOUNTER 2024-09-01 14:19 | Outpatient (CLI) | payer BC, SELFPAY ==
--- NOTE | 2024-09-01 14:24 | XR_ITS ---
FINAL REPORT CLINICAL HISTORY: Foot Pain FINDINGS: RIGHT FOOT 3 views of the right foot were obtained. There is no acute fracture or dislocation. Visualized joint spaces are normally aligned. Soft tissues are unremarkable. IMPRESSION: No acute bony abnormality. Reviewed, Interpreted and Dictated by Mason Anderson III, MD Transcribed by Thais Rivera Authenticated and [facility]
--- NOTE | 2024-09-01 14:24 | XR_ITS ---
FINAL REPORT CLINICAL HISTORY: Ankle Pain FINDINGS: RIGHT ANKLE 3 views of the right ankle were obtained. There is no acute fracture or dislocation. The mortise is intact. Visualized joint spaces are normally aligned. There is lateral soft tissue swelling. IMPRESSION: No acute bony abnormality. Reviewed, Interpreted and Dictated by Mason Anderson III, MD Transcribed by Thais Rivera Authenticated and [facility]
== END 2024-09-01 23:59 | disposition home or self-care (01) ==
LOC: RAD 14:21
PROVIDERS: PCP Internal Medicine Adolescent Medicine; Visit Provider Podiatrist
DX: G89.18 Other acute postprocedural pain (principal); M79.671 Pain in right foot
CPT/HCPCS: 73610; 73630

== ENCOUNTER 2024-09-09 16:00 | Outpatient (RCR) | payer BC, SELFPAY ==
--- NOTE | 2024-09-03 09:01 | HMH.PTOPWND ---
Rehab Outpt Wound Evaluation Rehab OP Wound Evaluation Start: 09/03/24 08:03 Freq: Status: Active Protocol: Document 09/03/24 08:48 BRITTNEY (Rec: 09/03/24 09:01 BRITTNEY [id number]) E-signed By Hebert Lnyne, PT Subjective/History History History This is the initial PT eval for Zulma Acevedo, 44 yowf who presents with c/o persistent R LE lymphedema x ~ 6 mos S/P R lateral ankle surgery. She reports increased edema with worse in the afternoon and evening with prolonged dependent position. She also reports her edema decreases at night with elevation of the R LE. She reports increased pain and intermittent numbness/tingling into the toes with increased edema. She reports hx of PFO closure, CVA with mild aphasia ~ 2 yrs ago. Subjective Subjective Currently pain is 1/10 in the lateral R ankle, at worst 7/10 . TTP 1/4 in the lateral L ankle. Mild palpable L ankle edema, but no pitting noted at this time. No erythema noted. New diagnosis of cancer in past 12 No months? Lymphedema Eval Classification of Lymphedema Secondary Lymphedema Yes Post-Surgical Lymphedema Yes Stemmer's sign Stemmer's Sign no Stage of Lymphedema Lymphedema stages Stage 0 (subjective c/o heaviness and aching) Skin Changes Dry Skin Yes Other Changes Yes Pain Scale Pain Scale (0-10) 7 Affected Extremities Areas Affected by Lymphedema/Edema Right Lower Extremity Lower Extremity Measurements Right MTP Measurement (cm) 19.7 Heel Measurement (cm) 29.5 10 cm Proximal to Lateral Malleoli 22.7 Measurement (cm) 20 cm Proximal to Lateral Malleoli 35.0 Measurement (cm) 30 cm Proximal to Lateral Malleoli 37.8 Measurement (cm) 40 cm Proximal to Lateral Malleoli 38.1 Measurement (cm) 50 cm Proximal to Lateral Malleoli 0 Measurement (cm) 60 cm Proximal to Lateral Malleoli 0 Measurement (cm) Lower Extremity Measurement Total (cm) 182.8 Manual Lymphatic Drainage Treatment Area MLD Treatment Area Right Lower Extremity Wound Problems/Impairments Impairments Problems/Impairmments Impaired Household Care, Impaired Work Activities, Increased Edema,Lymphedema Present,Subjective C/O Pain, Impaired Self Care/Self Management Prognosis Rehab Potential Good Comment Skilled therapy is indicate to reduce post-surgical edema burden and return pt to PLOF. Clinical Impression Consistent with Diagnosis Yes Short Term Goals Number of Weeks 2 Decrease Lymphedema Yes: Minimal R ankle fibrotic edema at end of work day. Decrease Subjective C/O Pain Yes: 5/10 at worst R ankle Patient to Understand Lymphedema Yes Treatment and Exercises Decrease Girth Measurments by (cm) Yes: R LE total by 3 cm Custodial Goals Number of Weeks 4 Decreased Palpation Tenderness Yes: 0/4 R lateral ankle Decrease Lymphedema Yes: No fibrotic edema to R LE at end of work day. Decrease Subjective C/O Pain Yes: 3/10 at worst R ankle Patient to be Ind w/ HEP Yes Patient to be Ind w/ Donning/Mabel Yes Compression Garments Patient to Adhere Lymphedema Precautions Yes Decrease Girth Measurments by (cm) Yes: R LE total by 5 cm Outpatient Therapy Plan of Care Treatment Plan May Include Therapeutic Exercise Including Home Yes Exercise Program Manual Therapy Techniques Yes Neuromuscular Re-education Yes Therapeutic Activities to Return to Yes Previous Functional/Work Level ADL/Self Care Education Yes Orthotics/Bracing/Splinting Yes Manual Lymphatic Drainage Yes Eval/Re-Eval Yes Frequency Times per week 2 Duration Number of Weeks 4 Addendums This patient is a candidate for social No or vocational rehab? Patient/Guardian verbally acknowledges Yes understanding of treatment program and consents to further treatment? Patient/Guardian verbally acknowledges Yes understanding of diagnosis, prognosis and goals for treatment? Eval Complexity PT Charges 61341 - High Complexity PHYSICIAN CERTIFICATION: I certify the specified therapy services for Zulma Acevedo are required, authorized, and reviewed every 30 days.
== END 2024-09-09 23:59 | disposition home or self-care (01) ==
LOC: PT 16:00
PROVIDERS: Visit Provider Podiatrist
DX: I89.0 Lymphedema, not elsewhere classified (principal); G89.18 Other acute postprocedural pain; S86.311A Strain of muscle(s) and tendon(s) of peroneal muscle group at lower leg level, right leg, initial encounter
CPT/HCPCS: 97140; 97163

== ENCOUNTER 2024-09-11 18:42 | Emergency (ER) | payer BC, SELFPAY ==
--- NOTE | 2024-09-11 18:47 | XR_ITS ---
PROCEDURE INFORMATION: Exam: XR Right Hand Exam date and time: 09/11/2024 7:27 PM Age: 44 years old Clinical indication: Injury or trauma; Fall; Other: Pain TECHNIQUE: Imaging protocol: Radiologic exam of the right hand. Views: 3 or more views. COMPARISON: CR XR WRIST RT MIN 3V 09/11/2024 7:27 PM FINDINGS: Bones/joints: Normal. Soft tissues: Normal. IMPRESSION: No acute findings.
--- NOTE | 2024-09-11 18:47 | XR_ITS ---
PROCEDURE INFORMATION: Exam: XR Right Wrist Exam date and time: 09/11/2024 7:27 PM Age: 44 years old Clinical indication: Injury or trauma; Fall; Other: Pain TECHNIQUE: Imaging protocol: Radiologic exam of the right wrist. Views: 3 or more views. COMPARISON: CR XR HAND RT MIN 3V 09/11/2024 7:27 PM FINDINGS: Bones/joints: Normal. Soft tissues: Normal. IMPRESSION: No acute findings.
[2024-09-11 20:05] VITALS: BP 114/52; PULSE 59; RESP 18; TEMP 36.7; O2SAT 98; BMI 30.9
--- NOTE | 2024-09-11 20:31 | ED_ITS ---
Discharge Plan Disposition Patient Disposition: Home, Self-Care Condition: Good Prescriptions Prescriptions: No Action cetirizine [Allergy Relief (cetirizine)] 10 mg tablet 10 mg PO DAILY Patient Comments: take ONE tablet by MOUTH ONCE daily as needed diltiazem HCl 240 mg capsule,extended release 24 hr 240 mg PO DAILY Patient Comments: Take 1 capsule (240 mg) by mouth 1 (one) time each day. propranolol 80 mg capsule,extended release 24 hr 80 mg PO DAILY Patient Comments: Take 1 capsule (80 mg) by mouth 1 (one) time each day. Do not crush, chew, or split. sertraline 25 mg tablet 25 mg PO DAILY Patient Comments: TAKE ONE TABLET BY MOUTH DAILY Xarelto 20 mg tablet 20 mg PO DAILY Patient Comments: TAKE ONE TABLET BY MOUTH ONCE DAILY WITH FOOD AT dinner lidocaine 5 % ointment 1 applic topical BIDP PRN (Reason: Pain) Patient Comments: APPLY TO THE AFFECTED AREA(S) TWICE DAILY NEEDED FOR PAIN Qulipta 60 mg tablet 60 mg PO DAILY Referrals Follow up/Referrals: Roberto Reynaga MD [Primary Care Provider] - See instructions Activity Restrictions/Add. Instructions Additional Instructions/Restrictions: *RICE, Rest the extremity, Ice 15-20 minutes 3-4 times daily, Compress- wear the danya wrap as discussed as much as possible to help reduce swelling and pain, Elevate the extremity when at rest *velcro wrist splint is for support and help control swelling, use it except in the shower. Be sure that is not to tight but not to loose either *Elevate when resting? *Ibuprofen 600-800mg every 6-8 hours as needed for pain an inflammation. If need something more can take Tylenol in between doses of Ibuprofen to help Immediately follow up with your family doctor for new or worsening of symptoms, or no noticeable improvement over the next 3-5 days Clinical Impressions Clinical Impression: Sprain of right wrist Qualifiers: Encounter type: initial encounter Qualified Code(s): S63.501A - Unspecified sprain of right wrist, initial encounter Instructions Patient Instructions: How To Perform RICE (Rest, Ice, Compress, Elevate), DI for Wrist Sprain, Ibuprofen Print Language Print Language: Lebanese Discharge ED Provider: Lina Albert [facility] General Stated complaint: AO 08/1724 1630 injury Right wrist Mode of Arrival: Ambulatory Source of Information: Patient Limitations: No Limitations Time Seen by Provider: 09/11/24 20:32 Description of Symptoms (Recalled from Triage Doc. by RN): PATIENT STATES SHE FELL ON SOME ROCKS THIS AFTERNOON AND LANDED ON RIGHT WRIST HEENT Symptoms (Recalled from RN notes): No Resp Symptoms (Recalled from RN notes): No Skin Symptoms (Recalled from RN notes): No MS Symptoms (Recalled from RN notes): Yes Functional Status (Recalled from RN notes): WNL History of Present Illness Provider Complaint: Patient states that she slipped on some rocks earlier and landed on her right wrist and hand area States that she has been having pain and tenderness in the area and came in to get it checked denies any other injury Related Data Home Medications ?Medication ?Instructions ?Recorded ?Confirmed atogepant 60 mg tablet (Qulipta) 60 mg PO DAILY 09/11/24 09/11/24 cetirizine 10 mg tablet (Allergy 10 mg PO DAILY 09/11/24 09/11/24 Relief (cetirizine)) diltiazem HCl 240 mg capsule,24 240 mg PO DAILY 09/11/24 09/11/24 hr,extended release lidocaine 5 % topical ointment 1 applic topical BIDP PRN Pain 09/11/24 09/11/24 propranolol 80 mg capsule,24 80 mg PO DAILY 09/11/24 09/11/24 hr,extended release rivaroxaban 20 mg tablet (Xarelto) 20 mg PO DAILY 09/11/24 09/11/24 sertraline 25 mg tablet 25 mg PO DAILY 09/11/24 09/11/24 Allergies Allergy/AdvReac Type Severity Reaction Status Date / Time Sulfa (Sulfonamide Allergy Mild Rash Verified 09/01/24 13:33 Antibiotics) topiramate [From Topamax] Allergy Mild Verified 09/01/24 13:33 Worker's Comp Is this a Worker's Comp case?: No [facility] Disclaimer: The information contained in this section may have been updated after the patient was seen, as this information can be updated by other users. Medical History Atrial fibrillation Palpitations Near syncope Enthesopathy of ankle History of thyroid nodule HLD (hyperlipidemia) PFO (patent foramen ovale) Status post closure, 02/09/2023, Dr. Jason, [facility] Cryptogenic stroke Headache, hemiplegic migraine Surgical History History of surgery PFO closure Status post tonsillectomy and adenoidectomy Family History Mother Cancer breast Father Cancer prostate Social History Smoking Status: Never smoker alcohol intake: never substance use type: denies use current occupational status: employed Travel in the last 8 weeks: None ROS Obtained: Yes All systems reviewed & no additional complaints except as documented and Yes Systems reviewed as appropriate & no additional complaints except as documented Constitutional Constitutional: Reports system reviewed and no additional complaints, except as documented and Reports as per HPI Eyes Eyes: Reports system reviewed and no additional complaints, except as documented and Reports as per HPI ENT Ears, Nose, Mouth, and Throat: Reports system reviewed and no additional complaints, except as documented and Reports as per HPI Cardiovascular Cardiovascular: Reports system reviewed and no additional complaints, except as documented and Reports as per HPI Respiratory Respiratory: Reports system reviewed and no additional complaints, except as documented and Reports as per HPI Gastrointestinal Gastrointestingal: Reports system reviewed and no additional complaints, except as documented and as per HPI Musculoskeletal Musculoskeletal: Reports system reviewed and no additional complaints, except as documented, Reports as per HPI and Reports other (pain in right wrist and hand after falling earlier) Physical Exam General General appearance: alert and in no apparent distress ENT ENT exam: Present mucous membranes moist Chest Chest inspection: Present normal inspection and symmetric chest wall rise Respiratory Respiratory exam: Present normal lung sounds bilaterally; Absent respiratory distress or wheezes Cardiovascular Cardiovascular exam: Present regular rate, normal rhythm and normal heart sounds Expanded Upper Extremity Exam Right: Hand L/R back image: 2 1. reports tenderness, no bruising or swelling noted at this time Vascular exam: Normal capillary refill and radial pulse Neurological Exam Neurological exam: Present alert, oriented X3 and normal gait Medical Decision Making Medical Records Screening: Per USPSTF and CDC recommendations, given the prevalence of disease in our region, it is our hospital?s policy to screen for HIV and viral Hepatitis for all patients aged 18 and over and those with ongoing risk factors. Tariq Inquiry Pt receiving controlled substance: No Tariq was queried for this patient: No Vital Signs: 09/11/24 20:05 Temperature 98.0 F Temperature Source Oral Pulse Rate [Left Brachial] 59 L Respiratory Rate 18 Blood Pressure [Left Arm] 114/52 L Blood Pressure Mean [Left Arm] 72 Blood Pressure Source [Left Arm] Automatic Cuff Blood Pressure Position [Left Arm] Sitting 02 Sat by Pulse Oximetry 98 Oxygen Delivery Method Room Air Orders (Tests/Meds): ORDERS Category Date Time Status Hand XR right minimum 3 views [XR hand RT min 3V] Stat Exams 09/11/24 18:47 Completed Wrist XR right minimum 3 views [XR wrist RT min 3V] Exams 09/11/24 18:47 Completed Stat Radiology Data #1: Image(s): Wrist Image Reviewed: Yes I have reviewed radiologist's interpretation IMPRESSION: No acute findings. #2: Image(s): Hand Image Reviewed: Yes I have reviewed radiologist's interpretation IMPRESSION: No acute findings. Procedures Orthopedic Splinting/Casting Injury #1: Side: right Upper Extremity Injury Location: wrist and hand Upper Extremity Immobilizer: wrist splint and applied by nurse/dr cheney Post Cast/Splinting Neuro Status: intact and no change Post Cast/Splinting Vasc Status: intact and no change
[2024-09-11 20:42] VITALS: BP 114/52; PULSE 59; RESP 18; TEMP 36.7; O2SAT 98
== END 2024-09-11 20:44 | disposition home or self-care (01) ==
PROVIDERS: Emergency Provider Nurse Practitioner; PCP Internal Medicine Adolescent Medicine
DX: S63.501A Unspecified sprain of right wrist, initial encounter (principal)
CPT/HCPCS: 73110; 73130; 99213; G0381

== ENCOUNTER 2024-12-04 15:55 | Outpatient (CLI) | payer BC, SELFPAY ==
--- NOTE | 2024-12-04 15:55 | MM_ITS ---
PROCEDURE INFORMATION: Exam: MG Bilateral Screening 3D Mammography Exam date and time: 12/04/2024 3:41 PM Age: 44 years old Clinical indication: Screening examination. TECHNIQUE: Imaging protocol: Bilateral Screening tomosynthesis and 2D mammography including computer-aided detection (CAD) when performed. COMPARISON: 1. MG MM DIG SCREENING MAMM BI W/CAD 11/28/2023 4:18 PM 2. MG MM DIG SCREENING MAMM BI W/CAD 12/04/2022 4:46 PM FINDINGS: MAMMOGRAPHY: Breast composition: There are scattered areas of fibroglandular density. Mass: None. Architectural distortion: None. Calcifications: No suspicious calcifications. Asymmetric density: None. Skin thickening: None. Axillary adenopathy: None. IMPRESSION: No mammographic evidence of malignancy. Annual screening is recommended unless otherwise clinically indicated. ASSESSMENT: BI-RADS Category 1: Negative.
== END 2024-12-04 23:59 | disposition home or self-care (01) ==
LOC: RAD 15:55
PROVIDERS: PCP Internal Medicine Adolescent Medicine; Visit Provider Nurse Practitioner Obstetrics & Gynecology
DX: Z12.31 Encounter for screening mammogram for malignant neoplasm of breast (principal)
CPT/HCPCS: 77063; 77067

== ENCOUNTER 2025-02-07 10:36 | Outpatient (CLI) | payer BC, SELFPAY ==
[2025-02-07 10:49] LABS: Basophils % 0.3 % (0.1-2.0); Eosinophils # 0.2 K/mm3 (0.0-0.4); Eosinophils % 2.2 % (0.1-12.0); Hematocrit 44.8 % (37.0-47.0); Hemoglobin 15.4 g/dL (12.2-16.2); Lymphocytes # 2.7 K/mm3 (0.7-4.5); Lymphocytes % 35.5 % (10-50); Mean Corpuscular HGB Conc 34.4 g/dL (31.8-35.4); Mean Corpuscular Hemoglobin 30.7 pg (27.0-31.2); Mean Corpuscular Volume 89.4 fl (81-99); Mean Platelet Volume 10.5 fl (7.4-10.4); Monocytes # 0.6 K/mm3 (0.1-1.0); Monocytes % 7.3 % (1.7-9.3); Neutrophils # 4.1 K/mm3 (1.8-7.8); Neutrophils % 54.6 % (37.0-80.0); Platelet Count 355 K/mm3 (142-424); Red Blood Count 5.01 M/mm3 (4.20-5.40); Red Cell Distribution Width 12.4 % (11.5-17.5); White Blood Count 7.6 K/mm3 (4.8-10.8)
[2025-02-07 12:58] LABS: Albumin Level 4.5 g/dl (3.5-5.0); Chloride 103 mmol/L (98-107); Potassium 4.3 mmoL/L (3.5-5.1); Sodium 135 mmol/L (136-145)
[2025-02-07 13:00] LABS: Alanine Aminotransferase 26 U/L (12-78); Anion Gap 11.3 mEq/L (5-15); Aspartate Amino Transferase 23 U/L (14-36); Blood Urea Nitrogen 13 mg/dl (7-17); Carbon Dioxide 25 mmol/L (22.0-30.0); Estimated Glomerular Filt Rate 79 ml/min (>60); GFR (African American) 95 ML/MIN (>60)
[2025-02-07 13:01] LABS: Albumin/Globulin Ratio 1.7 (1.1-1.8); Alkaline Phosphatase 80 U/L (38-126); Bilirubin,Total 0.8 mg/dl (0.2-1.3); Calcium 9.3 mg/dl (8.4-10.2); Chol/HDL Ratio 4.8 (1-3.5); Cholesterol 201 mg/dl (140-200); Globulin 2.7 g/dL (1.3-3.2); Glucose 85 mg/dl (74-100); HDL Cholesterol 42 mg/dl (40-60); Total Protein,Serum 7.2 g/dl (6.3-8.2); Triglycerides 114 mg/dl (30-150); VLDL Cholesterol 23 mg/dL (0-40)
[2025-02-07 13:14] LABS: Direct LDL Cholesterol 133.39 mg/dL (100-129)
[2025-02-07 13:20] LABS: 25-OH Vitamin D, Total 44.3 ng/mL (30-100); Triiodothryronine (T3) Uptake 30 % (23.5-40.5)
[2025-02-07 13:21] LABS: Free Thyroxine Index 2.4 ug/dL (5.93-13.13); T4 (Thyroxine) 8.1 ug/dl (5.53-11.0)
[2025-02-07 13:34] LABS: Thyroid Stimulating Hormone 1.65 uIU/mL (0.465-4.68)
== END 2025-02-07 23:59 | disposition home or self-care (01) ==
LOC: LAB 10:37
PROVIDERS: PCP Internal Medicine Adolescent Medicine; Visit Provider Nurse Practitioner Obstetrics & Gynecology
DX: R53.83 Other fatigue (principal)
CPT/HCPCS: 36415; 80053; 80061; 82306; 84436; 84443; 84479; 85025